=== PATIENT | male | born 1950 | race Caucasian/White ===

== ENCOUNTER 2018-01-15 16:16 | Observation (INO) | payer BC ==
[2018-01-15] MEDS: ENOXAPARIN 100 MG/ML SYR SQ SCH ×2 (06:00→18:00)
--- OUTSIDE RECORDS SUMMARY | 2018-01-15 16:18 | XMS REPORT | Clinical Summary ---
:1950 Author Organization [facility] Address [address] [place] [address] Care Team Providers Name Role Phone Asked, No Pcp Primary Care Provider Unavailable Allergies No Known Allergies Current Medications Prescription Sig. Disp. Refills Start Date End Date Status diclofenac 10/18/2017 Active (VOLTAREN) 75 MG EC tablet Ca/D3/mag Take by mouth. Active ox/zinc/copy director/bang/francia r (CALCIUM 600-D3 PLUS ORAL) ondansetron Take 1 tablet 20 tablet 2 12/11/2017 Active (ZOFRAN) 4 MG (4 mg total) tablet by mouth every 8 (eight) hours as needed for nausea or vomiting. acetaminophen Take 650 mg by 11/30/2017 Discontinued (TYLENOL) 325 MG mouth every 4 tablet (four) hours as needed for mild pain. HYDROcodone-acetami Take 1 tablet 11/30/2017 12/14/2017 nophen (NORCO) by mouth every 10-325 mg per 6 (six) hours tablet as needed for moderate pain for up to 60 doses. Max Daily Amount: 4 tablets aspirin (ECOTRIN) Take 1 tablet 60 tablet 0 11/30/2017 12/30/2017 81 MG enteric (81 mg total) coated tablet by mouth 2 (two) times a day for 30 days. sulfamethoxazole-tr Take 1 tablet 20 tablet 0 12/01/2017 12/11/2017 imethoprim (BACTRIM by mouth 2 DS) 800-160 mg per (two) times a tablet day for 10 days. promethazine Take 1 tablet 30 tablet 1 12/11/2017 01/10/2018 (PHENERGAN) 25 MG (25 mg total) tablet by mouth every 6 (six) hours as needed for nausea or vomiting for up to 30 days. Active Problems Problem Noted Date Status post total knee replacement using cement, right 12/11/2017 Primary osteoarthritis of right knee 11/01/2017 Overview: Added automatically from request for surgery [id number] Right knee pain 10/31/2017 Pain of right hip joint 10/31/2017 Primary localized osteoarthritis of right knee 10/31/2017 Primary localized osteoarthritis of right hip 10/31/2017 Encounters Date Type Specialty Care Team Description 01/11/2018 Office Visit Orthopedic Surgery Anne, Status post total knee Maximilian Jaime, replacement using MD moses, right (Primary Dx) 01/10/2018 Orders Only Orthopedic Surgery Pope, Right knee pain, [place], [place] unspecified chronicity (Primary Dx) 12/11/2017 Office Visit Orthopedic Surgery Kendy Whittington Status post total knee ASCENCION Rodriguez replacement using cement, right (Primary Dx) 12/11/2017 Orders Only Orthopedic Surgery Pope, Right knee pain, [place], [place] unspecified chronicity (Primary Dx) 12/01/2017 Orders Only Orthopedic Surgery Kendy Whittington PA 11/30/2017 Patient Outreach Quality Peggy Jules RN 11/29/2017 - Hospital Encounter Orthopedic Surgery Anne, Status post total knee replacement not using cement, right (Primary Dx); 11/30/2017 Maximilian Jaime Primary osteoarthritis of right knee 11/29/2017 Procedure Pass Orthopedic Surgery 11/29/2017 Surgery Orthopedic Surgery Anne, ARTHROPLASTY, KNEE, Maximilian Jaime, TOTAL 11/01/2017 Orders Only Orthopedic Surgery Niko, Primary osteoarthritis [place], [place] of right knee (Primary Dx) 10/31/2017 Hospital Encounter Radiology Anne, Primary osteoarthritis Maximilian Jaime of right knee 10/31/2017 Pre-Admit Testing Pre-Admission Anne, Primary osteoarthritis Appointment Testing Maximilian Jaime of right knee 10/31/2017 Office Visit Orthopedic Surgery Anne, Right knee pain, unspecified chronicity (Primary Dx); Maximilian Jaime, Pain of right hip joint; Primary localized osteoarthritis of right knee; Primary localized osteoarthritis of right hip 10/31/2017 Anesthesia Event Orthopedic Surgery Jeanie Gillis APRN 10/31/2017 Ancillary Orders Orthopedic Surgery Anne, Primary osteoarthritis Maximilian Addison, of right knee 10/31/2017 Orders Only Orthopedic Surgery Niko, Primary osteoarthritis MILLA Sanon of right knee (Primary Dx) after 01/14/2017 Family History Medical History Relation Name Comments Cancer Father Rafat Greene Colon Relation Name Status Comments Father Rafat Greene Social History Tobacco Use Types Packs/Day Years Used Date Current Every Day Smoker Cigarettes, Electronic Cigarettes 30 Smokeless Tobacco: Current User Tobacco Cessation: Ready to Quit: No; Counseling Given: No Alcohol Use Drinks/Week oz/Week Comments No Sex Assigned at Date Recorded Not on file Last Filed Vital Signs Vital Sign Reading Time Taken Blood Pressure 123/69 11/30/2017 8:50 AM CDT Pulse 63 11/30/2017 8:50 AM CDT Temperature 36.1 C (96.9 F) 11/30/2017 7:23 AM CDT Respiratory Rate 15 11/30/2017 7:23 AM CDT Oxygen Saturation 100% 11/30/2017 7:23 AM CDT Inhaled Oxygen Concentration - - Weight 91.6 kg (202 lb) 11/29/2017 8:15 AM CDT Height 190.5 cm (6' 3") 11/29/2017 8:15 AM CDT Body Mass Index 25.25 11/29/2017 8:15 AM CDT Plan of Treatment Health Maintenance Due Date Last Done Comments COLON CANCER SCREENING 2002 SHINGRIX VACCINE (#1) 2002 ZOSTER VACCINE 2012 PNEUMOCOCCAL POLYSACCHARIDE VACCINE AGE 65 AND OVER 2017 PNEUMOCOCCAL-13 2017 INFLUENZA VACCINE 01/03/2018 Implants Implanted Type Area Figurine Maker Device Expiration Model / Identifier Date Serial / Lot Legion Ps Oxin Fem Sz7 Rt - [id number] IMPLANT Right: [employer] 04/22/2027 [id number] / Implanted: Qty: 1 on 11/29/2017 by Maximilian Rodríguez MD DEVICES Knee ORTHOPAEDICS / [id number] Cement Bone R+G 1dose Palacos - [id number] Knee Joint Right: [employer] 06/04/2021 [id number] / Implanted: Qty: 1 on 11/29/2017 by Maximilian Rodríguez MD Implants Knee / [id number] Cement Bone R+G 1dose Palacos - [id number] Knee Joint Right: [employer] 06/04/2021 [id number] / Implanted: Qty: 1 on 11/29/2017 by Maximilian Rodríguez MD Implants Knee / [id number] Implant Tib Christiana Ii N-Por Rt Ti Sz 7 - [id number] Knee Joint Right: [employer] AND 09/16/2027 [id number] / Implanted: Qty: 1 on 11/29/2017 by Maximilian Rodríguez MD Implants Knee NEPHEW / ORTHOPEDICS [id number] Implant Ptlr Christiana Ii Rsrfcng Uhmwpe 9x35mm - [id number] Knee Joint Right: [employer] AND 05/13/2027 [id number] / Implanted: Qty: 1 on 11/29/2017 by Maximilian Rodríguez MD Implants Knee NEPHEW / ORTHOPEDICS [id number] Insert Artclr P-Stb Hi Flxon Lnr Xlpe Sz 7-8 9mm Legion - [id number] Knee Joint Right: [employer] AND 02/25/2027 [id number] / Implanted: Qty: 1 on 11/29/2017 by Maximilian Rodríguez MD Implants Knee NEPHEW / ORTHOPEDICS [id number] Procedures Procedure Name Priority Date/Time Associated Diagnosis Comments XR KNEE 3 VW RIGHT Routine 01/11/2018 2:17 Right knee pain, Results for this PM CDT unspecified chronicity procedure are in the results section. XR KNEE 3 VW RIGHT Routine 12/11/2017 1:54 Right knee pain, Results for this PM CDT unspecified chronicity procedure are in the results section. PROTHROMBIN TIME Routine 11/30/2017 4:10 Results for this WITH INR AM CDT procedure are in the results section. HC COMPLETE BLD Routine 11/30/2017 4:10 Results for this COUNT W/AUTO DIFF AM CDT procedure are in the results section. XR KNEE 1 OR 2 VW Routine 11/29/2017 2:24 Results for this RIGHT PM CDT procedure are in the results section. POC GLUCOSE Routine 11/29/2017 1:33 Results for this PM CDT procedure are in the results section. SURGICAL PATHOLOGY Routine 11/29/2017 12:05 Results for this REQUEST PM CDT procedure are in the results section. ARTHROPLASTY, KNEE, 11/29/2017 11:00 Primary osteoarthritis TOTAL AM CDT of right knee Special Needs 1 hour; Davis [employer] Nephew; Jaguar Ozyp rep; Supine position with arms extended less than 90 degrees; Tommy Footholder; pink foam under Non-operative leg; Venaflow on Non-Operative legsmith and nephewa.Arrival 0730b.2 g ancef, 1.5 g vancc.Please g dane vanc at 0800 DE AN ELECTIVE SUPRAGLOTTIC AIRWAY Routine 11/29/2017 10:50 AM CDT Procedure Note - Loulou Kent Jr., INSTRUMENT TECHNICIAN HELPER - 11/29/2017 10:50 AM CDT Airway Date/Time: 11/29/2017 10:44 AM Performed by: LOULOU KENT JR Authorized by: ROBIN JAVIER Location: OR Urgency: Elective Difficult Airway: No Anesthesiologist: ROBIN JAVIER Resident/INSTRUMENT TECHNICIAN HELPER/AA: LOULOU KENT JR Performed by: resident/INSTRUMENT TECHNICIAN HELPER/AA Preoxygenated with 100% O2: Yes C-spine Precautions Maintained Throughout: Yes Mask Ventilation: Easy mask Final Airway Type: Supraglottic airway Final LMA: I-Gel LMA Size: 5 Number of Attempts at Approach: 1 POC GLUCOSE Routine 11/29/2017 8:35 Results for this AM CDT procedure are in the results section. TYPE AND SCREEN Routine 11/29/2017 8:26 Results for this AM CDT procedure are in the results section. URINE CULTURE Routine 10/31/2017 6:05 Results for this PM CDT procedure are in the results section. XR CHEST 2 VW Routine 10/31/2017 5:38 Primary Results for this PM CDT osteoarthritis of procedure are in right knee the results section. ECG 12-LEAD Routine 10/31/2017 5:10 Primary Results for this PM CDT osteoarthritis of procedure are in right knee the results section. ESTIMATED GFR Routine 10/31/2017 4:49 Results for this PM CDT procedure are in the results section. URINALYSIS SCREEN AND Routine 10/31/2017 4:49 Primary Results for this MICROSCOPY, WITH PM CDT osteoarthritis of procedure are in REFLEX TO CULTURE right knee the results section. PROTHROMBIN TIME WITH Routine 10/31/2017 4:49 Primary Results for this INR PM CDT osteoarthritis of procedure are in right knee the results section. PARTIAL THROMBOPLASTIN Routine 10/31/2017 4:49 Primary Results for this TIME (PTT) PM CDT osteoarthritis of procedure are in right knee the results section. HEPATITIS C ANTIBODY Routine 10/31/2017 4:49 Primary Results for this PM CDT osteoarthritis of procedure are in right knee the results section. HEPATITIS B SURFACE Routine 10/31/2017 4:49 Primary Results for this ANTIBODY PM CDT osteoarthritis of procedure are in right knee the results section. HEMOGLOBIN A1C Routine 10/31/2017 4:49 Primary Results for this PM CDT osteoarthritis of procedure are in right knee the results section. COMPREHENSIVE Routine 10/31/2017 4:49 Primary Results for this METABOLIC PANEL PM CDT osteoarthritis of procedure are in right knee the results section. HC COMPLETE BLD COUNT Routine 10/31/2017 4:49 Primary Results for this W/AUTO DIFF PM CDT osteoarthritis of procedure are in right knee the results section. XR LEG LENGTH Routine 10/31/2017 3:16 Right knee pain, Results for this EVALUATION PM CDT unspecified procedure are in chronicity the results section. XR KNEE 3 VW RIGHT Routine 10/31/2017 3:16 Right knee pain, Results for this PM CDT unspecified procedure are in chronicity the results section. XR HIP 2-3 VIEWS RIGHT Routine 10/31/2017 3:16 Pain of right hip Results for this PM CDT joint procedure are in the results section. after 01/14/2017 Results XR Knee 3 Vw Right (01/11/2018 2:17 PM)Only the most recent of3 resultswithin the time period is included. Narrative Performed At Right knee 3 view demonstrates well aligned total knee prosthesis. No HM [facility] implant or osseus complications Performing Organization Address City/[facility] [place] [facility] [address] [place] [address] Prothrombin time with INR (11/30/2017 4:10 AM)Only the most recent of2 resultswithin the time period is included. Prothrombin time 13.9 12.0 - 15.[address] [facility] DEPARTMENT OF PATHOLOGY AND GENOMIC MEDICINE INR 1.[address] [facility] DEPARTMENT OF Comment: PATHOLOGY AND GENOMIC The International Normalized Ratio (INR) is a therapeutic MEDICINE monitoring tool for patients who are stable on oral anticoagulant therapy. An INR of 2.0-3.0 is suggested for deep vein thrombosis/pulmonary embolism. Specimen Blood Performing Organization Address City/[facility]/Zipcode Phone Number [facility] DEPARTMENT PATHOLOGY AND [address] [place] [address] GENOMIC MEDICINE CBC with platelet and differential (11/30/2017 4:10 AM)Only the most recent of2 resultswithin the time period is included. WBC 10.83 4.50 - 11.00 k/uL [facility] DEPARTMENT OF PATHOLOGY AND GENOMIC MEDICINE RBC 3.71 (L) 4.40 - 6.00 m/uL [facility] DEPARTMENT OF PATHOLOGY AND GENOMIC MEDICINE HGB 12.4 (L) 14.0 - 18.0 g/dL [facility] DEPARTMENT OF PATHOLOGY AND GENOMIC MEDICINE HCT 37.4 (L) 41.0 - 51.0 % [facility] DEPARTMENT OF PATHOLOGY AND GENOMIC MEDICINE MCV 100.8 (H) 82.0 - 100.[address] [facility] DEPARTMENT OF PATHOLOGY AND GENOMIC MEDICINE MCH 33.4 27.0 - 34.[address] [facility] DEPARTMENT OF PATHOLOGY AND GENOMIC MEDICINE MCHC 33.2 31.0 - 37.0 g/dL [facility] DEPARTMENT OF PATHOLOGY AND GENOMIC MEDICINE RDW - SD 46.5 37.0 - 55.[address] [facility] DEPARTMENT OF PATHOLOGY AND GENOMIC MEDICINE MPV 10.2 8.8 - 13.[address] [facility] DEPARTMENT OF PATHOLOGY AND GENOMIC MEDICINE Platelet count 169 150 - 400 k/uL [facility] DEPARTMENT OF PATHOLOGY AND GENOMIC MEDICINE Nucleated RBC 0.00 /[address] [facility] DEPARTMENT OF PATHOLOGY AND GENOMIC MEDICINE Neutrophils 82.8 (H) 39.0 - 69.0 % [facility] DEPARTMENT OF PATHOLOGY AND GENOMIC MEDICINE Lymphocytes 9.5 (L) 25.0 - 45.0 % [facility] DEPARTMENT OF PATHOLOGY AND GENOMIC MEDICINE Monocytes 7.0 0.0 - 10.0 % [facility] DEPARTMENT OF PATHOLOGY AND GENOMIC MEDICINE Eosinophils 0.0 0.0 - 5.0 % [facility] DEPARTMENT OF PATHOLOGY AND GENOMIC MEDICINE Basophils 0.2 0.0 - 1.0 % [facility] DEPARTMENT OF PATHOLOGY AND GENOMIC MEDICINE Immature granulocytes 0.5Comment: 0.0 - 1.0 % [facility] DEPARTMENT OF "Immature PATHOLOGY AND GENOMIC granulocytes" MEDICINE (promyelocytes, myelocytes, metamyelocytes) Specimen Blood Performing Organization Address City/[facility]/Zipcode Phone Number [facility] DEPARTMENT OF PATHOLOGY AND [address] [place] [address] GENOMIC MEDICINE XR Knee 1 Or 2 Vw Right (11/29/2017 2:24 PM) Narrative Performed At EXAMINATION:XR KNEE 1 OR 2 VW RIGHT [facility] CLINICAL HISTORY:total knee arthoplasty COMPARISON:10/31/2017 TECHNIQUE: 2views of the right knee obtained. IMPRESSION: Interval right knee arthroplasty. Satisfactory immediate postoperative appearance. [facility]-[id number] Procedure Note Interface, Radiology Results Incoming - 11/29/2017 3:49 PM CDT EXAMINATION: XR KNEE 1 OR 2 VW RIGHT CLINICAL HISTORY: total knee arthoplasty COMPARISON: 10/31/2017 TECHNIQUE: 2 views of the right knee obtained. IMPRESSION: Interval right knee arthroplasty. Satisfactory immediate postoperative appearance. [facility]-[id number] Performing Organization Address City/[facility] Phone Number [facility] [address] [place] [phone] POC glucose (11/29/2017 1:33 PM)Only the most recent of2 resultswithin the time period is included. POC glucose 87 65 - 99 mg/dL [facility] DEPARTMENT OF PATHOLOGY AND Comment: GENOMIC MEDICINE No Action Needed [facility] Notified RN Meter ID: [id number] Head Bander And Liner Operator: Miriam Tang Performing Organization Address City/[facility]/Zipcode Phone Number [facility] DEPARTMENT OF PATHOLOGY AND [address] [place] [phone] GENOMIC MEDICINE Surgical pathology request (11/29/2017 12:05 PM) [facility] DEPARTMENT OF PATHOLOGY AND GENOMIC MEDICINE Surgical pathology report See link below for PDF [facility] DEPARTMENT OF Lab Report PATHOLOGY AND GENOMIC MEDICINE Result status This is Final Report to [facility] DEPARTMENT OF [id number] PATHOLOGY AND GENOMIC MEDICINE Performing Organization Address [facility] Cent[facility]ode Phone Number [facility] DEPARTMENT OF PATHOLOGY AND [address] [place], [place] [phone] GENOMIC MEDICINE Type and screen (11/29/2017 8:26 AM) ABO grouping B [facility] DEPARTMENT OF PATHOLOGY AND GENOMIC MEDICINE Rh type POS [facility] DEPARTMENT OF PATHOLOGY AND GENOMIC MEDICINE Antibody screen (gel) NEG [facility] DEPARTMENT OF PATHOLOGY AND GENOMIC MEDICINE Specimen Blood Performing Organization Address City/[facility]ode Phone Number [facility] DEPARTMENT OF PATHOLOGY AND [address] [place] [phone] GENOMIC MEDICINE Urine culture (10/31/2017 6:05 PM) Urine culture SEE COMMENTComment: Bacteriuria [facility] DEPARTMENT OF PATHOLOGY screen negative. AND GENOMIC MEDICINE Performing Organization Address [facility]ode Phone Number [facility] DEPARTMENT OF PATHOLOGY AND [address] [place] [address] GENOMIC MEDICINE XR Chest 2 Vw (10/31/2017 5:38 PM) Narrative Performed At EXAMINATION:XR CHEST 2 VW [facility] CLINICAL HISTORY:M17.11 Unilateral primary osteoarthritisright knee, pre op exam COMPARISON:None. IMPRESSION: 1.The cardiomediastinal silhouette is normal. 2.Mild emphysematous changes are present. There is no evidence of pulmonary edema. There are no focal consolidations or effusions. 3.Marginal osteophytes are present in the midthoracic spine. There are no suspicious bony abnormalities. Procedure Note Interface, Radiology Results Incoming - 10/31/2017 5:46 PM CDT EXAMINATION: XR CHEST 2 VW CLINICAL HISTORY: M17.11 Unilateral primary osteoarthritis right knee, pre op exam COMPARISON: None. IMPRESSION: 1. The cardiomediastinal silhouette is normal. 2. Mild emphysematous changes are present. There is no evidence of pulmonary edema. There are no focal consolidations or effusions. 3. Marginal osteophytes are present in the midthoracic spine. There are no suspicious bony abnormalities. Performing Organization Address [facility] Cent[facility]ode Phone Number [facility] [address] [place] [address] ECG 12 lead (10/31/2017 5:10 PM) Ventricular rate 53 [facility] Atrial rate 53 [facility] DE interval 174 [facility] QRSD interval 98 [facility] QT interval 432 [facility] QTC interval 405 [facility] P axis 1 62 [facility] QRS axis 1 11 [facility] T wave axis 6 [facility] EKG impression Sinus bradycardia-Minimal voltage criteria [facility] MUSE for LVH, may be normal variant-Borderline ECG-No previous ECGs available- Performing Organization Address City/[facility]/Zipcode Phone Number [facility] MUSE [address] [place] [address] Urinalysis screen and microscopy, with reflex to culture (10/31/2017 4:49 PM) Specimen site Clean catch [facility] DEPARTMENT OF PATHOLOGY AND GENOMIC MEDICINE Color, UA Yellow [facility] DEPARTMENT OF PATHOLOGY AND GENOMIC MEDICINE Appearance, UA Clear [facility] DEPARTMENT OF PATHOLOGY AND GENOMIC MEDICINE Specific gravity, UA 1.020 1.001 - 1.[address] [facility] DEPARTMENT OF PATHOLOGY AND GENOMIC MEDICINE pH, UA 5.0 5.0 - 8.[address] [facility] DEPARTMENT OF PATHOLOGY AND GENOMIC MEDICINE Protein, UA Negative Negative [facility] DEPARTMENT OF PATHOLOGY AND GENOMIC MEDICINE Glucose, UA Negative Negative [facility] DEPARTMENT OF PATHOLOGY AND GENOMIC MEDICINE Ketones, UA Negative Negative [facility] DEPARTMENT OF PATHOLOGY AND GENOMIC MEDICINE Bilirubin, UA Negative Negative [facility] DEPARTMENT OF PATHOLOGY AND GENOMIC MEDICINE Blood, UA Negative Negative [facility] DEPARTMENT OF PATHOLOGY AND GENOMIC MEDICINE Nitrite, UA Negative Negative [facility] DEPARTMENT OF PATHOLOGY AND GENOMIC MEDICINE Urobilinogen, UA <2.0 <2.[address] [facility] DEPARTMENT OF PATHOLOGY AND GENOMIC MEDICINE Leukocyte esterase, UA Negative Negative [facility] DEPARTMENT OF PATHOLOGY AND GENOMIC MEDICINE Epithelial cells, UA <1 /HPF [facility] DEPARTMENT OF PATHOLOGY AND GENOMIC MEDICINE WBC, UA 1 0 - 1 /HPF [facility] DEPARTMENT OF PATHOLOGY AND GENOMIC MEDICINE RBC, UA 1 0 - 5 /HPF [facility] DEPARTMENT OF PATHOLOGY AND GENOMIC MEDICINE Bacteria, UA None seen None seen [facility] DEPARTMENT OF PATHOLOGY AND GENOMIC MEDICINE Yeast, UA None seen [facility] DEPARTMENT OF PATHOLOGY AND GENOMIC MEDICINE Yeast with pseudohyphae, UA None seen [facility] DEPARTMENT OF PATHOLOGY AND GENOMIC MEDICINE Specimen Urine Performing Organization Address City/State/[facility]ercode Phone Number [facility] DEPARTMENT OF PATHOLOGY AND [address] [place] [address] [facility] Estimated GFR (10/31/2017 4:49 PM) GFR Non Af Amer >90 mL/min/1.[address] [facility] DEPARTMENT OF PATHOLOGY AND GENOMIC MEDICINE GFR Af Amer >90 mL/min/1.[address] [facility] DEPARTMENT OF Comment: PATHOLOGY AND GENOMIC Chronic kidney disease: <60 mL/min/1.73m2 MEDICINE Kidney failure: <15 mL/min/1.73m2 The estimated GFR is calculated from the IDMS-traceable Modification of Diet in Renal Disease Equation. The accuracy of the calculation is poor when the creatinine is normal. Calculated values >90 mL/min/1.73m2 are not reported. This equation has not been validated in children (<18 years), women, the elderly (>70 years), or ethnic groups other than Caucasians and Americans. Specimen Plasma specimen Performing Organization Address City/State/Zipcode Phone Number [facility] DEPARTMENT OF PATHOLOGY AND [address] [place], [place] [phone] [place] [address] Hepatitis C antibody (10/31/2017 4:49 PM) Hepatitis C Ab Non-reactive Non-reactive [facility] DEPARTMENT OF PATHOLOGY AND [facility] Specimen Urine Performing Organization Address [facility] [place] Phone [place] [facility] DEPARTMENT OF PATHOLOGY AND [address] [place] [address] Hepatitis B surface antibody (10/31/2017 4:49 PM) Hepatitis B surface Ab Non-reactive Non-reactive [facility] DEPARTMENT OF PATHOLOGY AND [facility] Specimen Urine Performing Organization Address [facility] [place] Phone Number [facility] DEPARTMENT OF PATHOLOGY AND [address] [place] [address] Partial thromboplastin time, activated (10/31/2017 4:49 PM) PTT 28.1 23.0 - 36.[address] [facility] DEPARTMENT OF PATHOLOGY Comment: AND [facility] PTT therapeutic range for unfractionated heparin is 61.0-112.0 seconds which corresponds to Anti-Xa 0.3-0.7 U/ml. Specimen Blood Performing Organization Address [facility] [place] [facility] DEPARTMENT OF PATHOLOGY AND [address] [place] [address] Hemoglobin A1c (10/31/2017 4:49 PM) Hemoglobin A1C 5.6 4.0 - 5.6 % [facility] DEPARTMENT OF PATHOLOGY Comment: AND [facility] HbA1c cutoffs for diagnosing diabetes: 4.0% - 5.6%=normal 5.7% - 6.4%=increased risk for diabetes (prediabetes) >=6.5%=diabetes Goals for glycemic control (ADA 2016) < 7.0%Target for non adults with diabetes. More or less stringent targets may be appropriate for individual patients. <7.5% Target for Children and adolescents with type 1 diabetes. Specimen Urine Performing Organization Address [facility] Phone Number [facility] DEPARTMENT OF PATHOLOGY AND [address] [place] [address] Comprehensive metabolic panel (10/31/2017 4:49 PM) Sodium 143 135 - 148 mEq/L [facility] DEPARTMENT OF PATHOLOGY AND GENOMIC MEDICINE Potassium 4.3 3.5 - 5.0 mEq/L [facility] DEPARTMENT OF PATHOLOGY AND GENOMIC MEDICINE Chloride 103 98 - 112 mEq/L [facility] DEPARTMENT OF PATHOLOGY AND GENOMIC MEDICINE CO2 26 24 - 31 mEq/L [facility] DEPARTMENT OF PATHOLOGY AND GENOMIC MEDICINE Anion gap 14@ANIO 7 - 15 mEq/L [facility] DEPARTMENT OF PATHOLOGY AND GENOMIC MEDICINE BUN 23 8 - 23 mg/dL [facility] DEPARTMENT OF PATHOLOGY AND GENOMIC MEDICINE Creatinine 0.8 0.7 - 1.2 mg/dL [facility] DEPARTMENT OF PATHOLOGY AND GENOMIC MEDICINE Glucose 81 65 - 99 mg/dL [facility] DEPARTMENT OF PATHOLOGY AND GENOMIC MEDICINE Calcium 9.7 8.8 - 10.2 mg/dL [facility] DEPARTMENT OF PATHOLOGY AND GENOMIC MEDICINE Protein 7.8 6.3 - 8.3 g/dL [facility] DEPARTMENT OF Comment: PATHOLOGY AND GENOMIC Cassandra 4.6-7.0 g/dL MEDICINE 1 week 4.4-7.6 g/dL 7 months-1year5.1-7.3 g/dL 1-2 years5.6-7.5 g/dL >3 years6.0-8.0 g/dL 18-150 6.3-8.3 g/dL Albumin 4.1 3.5 - 5.0 g/dL [facility] DEPARTMENT OF PATHOLOGY AND GENOMIC MEDICINE A/G ratio 1.1 0.7 - 3.[address] [facility] DEPARTMENT OF PATHOLOGY AND GENOMIC MEDICINE Alkaline phosphatase 68 40 - 129 U/L [facility] DEPARTMENT OF PATHOLOGY AND GENOMIC MEDICINE AST 21 10 - 50 U/L [facility] DEPARTMENT OF PATHOLOGY AND GENOMIC MEDICINE ALT 26 5 - 50 U/L [facility] DEPARTMENT OF PATHOLOGY AND GENOMIC MEDICINE Total bilirubin 0.5 0.0 - 1.2 mg/dL [facility] DEPARTMENT OF PATHOLOGY AND GENOMIC MEDICINE Specimen Plasma specimen Performing Organization Address City/[facility] Phone Number [facility] DEPARTMENT OF PATHOLOGY AND [address] [place] [phone] GENOMIC MEDICINE XR Leg Length Evaluation (10/31/2017 3:16 PM) Narrative Performed At Long leg film shows neutral alignment of bilateral legs, no gross [facility] abnormalities noted. Performing Organization Address City/[facility] Phone Number [facility] [address] [place] [address] XR Hip 2-3 View Right (10/31/2017 3:16 PM) Narrative Performed At Right hip xray shows osteophytes present and joint space narrowing.Mild [facility] cam deformity Performing Organization Address City/State/Zipcode Phone Number [facility] [address] [place] [address] after 01/14/2017 Insurance Payer Benefit Plan / Group Subscriber ID Type Phone Address [facility] YANA VALENTIN xxxxxxxxxxxx PPO MEDICARE MEDICARE PART A xxxxxxxxxxx Medicare [place], [place] Home: [phone] [place], [place] [phone]
--- NOTE | 2018-01-15 17:16 | ER ---
Nurse's Notes [facility] Name: Sina Greene Age: 67 yrs Sex: Male : 1950 Arrival Date: 01/15/2018 Time: 16:19 Bed 5 Private MD: Out, [facility] Diagnosis: Acute embolism and thrombosis of deep veins of lower extremity-right Presentation: 01/15 16:39 Presenting complaint: Patient states: Had a right total knee replacement November 29, jl7 started having right calf pain on Monday and imaging done today and confirmed a clot to the right leg. Transition of care: patient was not received from another setting of care. Onset of symptoms was January 15, 2018. Risk Assessment: Do you want to hurt yourself or someone else? Patient reports no desire to harm self or others. Initial Sepsis Screen: Does the patient meet any 2 criteria? No. Patient's initial sepsis screen is negative. Does the patient have a suspected source of infection? No. Patient's initial sepsis screen is negative. Care prior to arrival: None. 16:39 Method Of Arrival: Wheelchair [facility] 16:39 Acuity: MONA 3 jl7 Historical: - Allergies: 16:42 No Known Allergies; jl7 - Home Meds: 16:42 None [Active]; jl7 - PMHx: 16:42 None; jl7 - PSHx: 16:42 Right knee; back; jl7 - Immunization history:: Adult Immunizations up to date. - Social history:: Smoking status: Patient uses tobacco products, smokes one-half pack cigarettes per day. - Ebola Screening: : No symptoms or risks identified at this time. - Family history:: not pertinent. Screenin:00 Abuse screen: Denies threats or abuse. Nutritional screening: No deficits noted. jb4 Tuberculosis screening: No symptoms or risk factors identified. Fall Risk IV access (20 points). Total Owens Fall Scale indicates No Risk (0-24 pts). Assessment: 17:00 General: Appears in no apparent distress. comfortable, Behavior is calm, cooperative, jb4 appropriate for age. Pain: Complains of pain in right calf Pain does not radiate. Pain currently is 0 out of 10 on a pain scale. at worst was 5 out of 10 on a pain scale. Quality of pain is described as aching, Pain began 2-3 days ago. Is intermittent. Neuro: Level of Consciousness is awake, alert, obeys commands, Oriented to person, place, time, situation. Cardiovascular: Denies chest pain, shortness of breath, Heart tones S1 S2 present Patient's skin is warm and dry. Respiratory: Airway is patent Respiratory effort is even, unlabored, Respiratory pattern is regular, symmetrical, Breath sounds are clear bilaterally. GI: Abdomen is flat, Bowel sounds present X 4 quads. Abd is soft and non tender X 4 quads. : No signs and/or symptoms were reported regarding the genitourinary system. EENT: No signs and/or symptoms were reported regarding the EENT system. Derm: Skin is intact, Skin is pink, warm \T\ dry. Musculoskeletal: Circulation, motion, and sensation intact. Capillary refill < 3 seconds, in right toes. Swelling present in right leg Reports pain in right calf since Monday.. 18:00 Reassessment: Patient appears in no apparent distress at this time. No changes from 4 previously documented assessment. Patient and/or family updated on plan of care and expected duration. Pain level reassessed. Patient is alert, oriented x 3, equal unlabored respirations, skin warm/dry/pink. 18:20 Reassessment: Pt wheeled to CT. jb4 18:40 Reassessment: Back from CT. jb4 18:51 Reassessment: Patient appears in no apparent distress at this time. Patient and/or jb4 family updated on plan of care and expected duration. Pain level reassessed. Patient is alert, oriented x 3, equal unlabored respirations, skin warm/dry/pink. Echo is at the bedside. Patient denies pain at this time. 19:00 Reassessment: RECD REPORT FROM VAMSI RODRIGUEZ. 67YO WM P/W R CALF TENDERNESS NOTED AT bp OUTPATIENT PHYSICAL THERAPY. ECHO AT B/S. ADMIT IN PROCESS. 19:11 Reassessment: ECHO COMPLETED. bp 19:56 Reassessment: Report given to Miguelina on second floor. Vital Signs: 16:42 BP 128 / 82; Pulse 69; Resp 16 S; Temp 98.2(O); Pulse Ox 99% on R/A; Weight 94.35 kg jl7 (R); Height 6 ft. 3 in. (190.50 cm) (R); Pain 1/10; 17:30 BP 140 / 87; Pulse 69; Resp 16; Pulse Ox 97% on R/A; Pain 0/10; jb4 18:00 BP 132 / 86; Pulse 66; Resp 16; Pulse Ox 94% on R/A; Pain 0/10; jb4 19:00 BP 126 / 72; Pulse 66; Resp 16; Pulse Ox 97% on R/A; Pain 0/10; jb4 16:42 Body Mass Index 26.00 (94.35 kg, 190.50 cm) jl7 ED Course: 16:19 Patient arrived in ED. sb2 16:21 Out, [facility] is Private Physician. sb2 16:41 Triage completed. jl7 16:42 Arm band placed on right wrist. jl7 16:44 Juan Landrum MD is Attending Physician. madonna 17:05 Initial lab(s) drawn, by de, sent to lab. Inserted saline lock: 22 gauge in right jp3 forearm, using aseptic technique. Blood collected. 17:13 Tommy Shepard, RN is Primary Nurse. jb4 17:14 Bed in low position. Call light in reach. Side rails up X 1. Pulse ox on. NIBP on. jp3 17:15 Carlo Wallace DO is Hospitalizing Provider. madonna 17:15 technology administrator on. jb4 17:17 XRAY Chest (1 view) In Process Unspecified. EDMS 17:38 EKG done, by master technician. reviewed by Juan Landrum MD. dt2 17:43 Radiology exam delayed due to lab results not completed at this time. (BUN/Creatinine). nj 18:[address] via stretcher. vm2 18:30 CT completed. Patient tolerated procedure well. Patient moved back from CT. vm2 18:35 CT Chest For PE Angio In Process Unspecified. EDMS 18:50 Pillow given. jp3 19:09 Primary Nurse role handed off by Tommy Shepard, JENNIFER bp 19:09 Gerardo Barahona, JENNIFER is Primary Nurse. bp 19:15 2D Echocardiogram with Doppler done by tech. dt2 20:00 No provider procedures requiring assistance completed. Patient admitted, IV remains in bp place. Administered Medications: 17:28 Drug: Lovenox 1 mg/kg Route: Sub-Q; Site: right lower abdomen; jb4 17:56 Follow up: Response: No adverse reaction jb4 17:30 Drug: NS 0.9% 1000 ml Route: IV; Rate: 125 ml/hr; Site: right forearm; jb4 19:45 Follow up: IV Status: Infusion continued upon admission bp Outcome: 17:16 Decision to Hospitalize by Provider. madonna 19:56 Admitted to Med/surg accompanied by nurse, room 209, with chart, Report called to Miguelina moreira RN 19:56 Condition: stable bp 20:28 Patient left the ED. bp Signatures: Dispatcher [employer] EDUT Juan Landrum MD MD cha Bryson, James, RN RN jb4 Varun Love Jahala, RN RN jl7 [place] Patel2 Richelle Ware RN Gerardo Bo ea RN RN Renay Snell2 Otilia Mercer dt2 Ortega Obando jp3
--- NOTE | 2018-01-15 17:16 | EDPHYS ---
Physician Documentation [facility] Name: Sina Greene Age: 67 yrs Sex: Male : 1950 Arrival Date: 01/15/2018 Time: 16:19 Bed 5 Private MD: Out, [facility] ED Physician Juan Landrum HPI: 01/15 17:08 This 67 yrs old Male presents to ER via Wheelchair with complaints of BLOOD madonna CLOT RT LEG. 17:08 The patient presents with decreased range of motion, pain, swelling, tenderness. The madonna complaints affect the lateral aspect of right calf, right calf, medial aspect of right calf and right james. Context: The problem was sustained at an unknown site. Onset: The symptoms/episode began/occurred 1 week(s) ago. Modifying factors: The symptoms are alleviated by nothing. elevating leg, the symptoms are aggravated by movement, weight bearing. Associated signs and symptoms: The patient has no apparent associated signs or symptoms. Severity of symptoms: At their worst the symptoms were mild, in the emergency department the symptoms are unchanged. The patient has not experienced similar symptoms in the past. Historical: - Allergies: 16:42 No Known Allergies; jl7 - Home Meds: 16:42 None [Active]; jl7 - PMHx: 16:42 None; jl7 - PSHx: 16:42 Right knee; back; jl7 - Immunization history:: Adult Immunizations up to date. - Social history:: Smoking status: Patient uses tobacco products, smokes one-half pack cigarettes per day. - Ebola Screening: : No symptoms or risks identified at this time. - Family history:: not pertinent. ROS: 17:08 Constitutional: Negative for fever, chills, and weight loss, Eyes: Negative for injury, madonna pain, redness, and discharge, ENT: Negative for injury, pain, and discharge, Neck: Negative for injury, pain, and swelling, Cardiovascular: Negative for chest pain, palpitations, and edema, Respiratory: Negative for shortness of breath, cough, wheezing, and pleuritic chest pain, Abdomen/GI: Negative for abdominal pain, nausea, vomiting, diarrhea, and constipation, Back: Negative for injury and pain, : Negative for injury, bleeding, discharge, and swelling, Skin: Negative for injury, rash, and discoloration, Neuro: Negative for headache, weakness, numbness, tingling, and seizure, Psych: Negative for depression, anxiety, suicide ideation, homicidal ideation, and hallucinations, Allergy/Immunology: Negative for hives, rash, and allergies, Endocrine: Negative for neck swelling, polydipsia, polyuria, polyphagia, and marked weight changes, Hematologic/Lymphatic: Negative for swollen nodes, abnormal bleeding, and unusual bruising. 17:08 MS/extremity: Positive for decreased range of motion, pain, swelling, tenderness, of the lateral aspect of right calf, right calf and medial aspect of right calf. Exam: 17:08 Constitutional: This is a well developed, well nourished patient who is awake, alert, madonna and in no acute distress. Head/Face: Normocephalic, atraumatic. Eyes: Pupils equal round and reactive to light, extra-ocular motions intact. Lids and lashes normal. Conjunctiva and sclera are non-icteric and not injected. Cornea within normal limits. Periorbital areas with no swelling, redness, or edema. ENT: Nares patent. No nasal discharge, no septal abnormalities noted. Tympanic membranes are normal and external auditory canals are clear. Oropharynx with no redness, swelling, or masses, exudates, or evidence of obstruction, uvula midline. Mucous membranes moist. Neck: Trachea midline, no thyromegaly or masses palpated, and no cervical lymphadenopathy. Supple, full range of motion without nuchal rigidity, or vertebral point tenderness. No Meningismus. Chest/axilla: Normal chest wall appearance and motion. Nontender with no deformity. No lesions are appreciated. Cardiovascular: Regular rate and rhythm with a normal S1 and S2. No gallops, murmurs, or rubs. Normal PMI, no JVD. No pulse deficits. Respiratory: Lungs have equal breath sounds bilaterally, clear to auscultation and percussion. No rales, rhonchi or wheezes noted. No increased work of breathing, no retractions or nasal flaring. Abdomen/GI: Soft, non-tender, with normal bowel sounds. No distension or tympany. No guarding or rebound. No evidence of tenderness throughout. Back: No spinal tenderness. No costovertebral tenderness. Full range of motion. Skin: Warm, dry with normal turgor. Normal color with no rashes, no lesions, and no evidence of cellulitis. Neuro: Awake and alert, GCS 15, oriented to person, place, time, and situation. Cranial nerves II-XII grossly intact. Motor strength 5/5 in all extremities. Sensory grossly intact. Cerebellar exam normal. Normal gait. Psych: Awake, alert, with orientation to person, place and time. Behavior, mood, and affect are within normal limits. 17:08 Musculoskeletal/extremity: ROM: no acute changes, intact in all extremities, full active range of motion, full passive range of motion, Circulation is intact in all extremities. Sensation intact. Compartment Syndrome exam of affected extremity: is normal. DVT Exam: pain, swelling, tenderness, of the right leg. Vital Signs: 16:42 BP 128 / 82; Pulse 69; Resp 16 S; Temp 98.2(O); Pulse Ox 99% on R/A; Weight 94.35 kg jl7 (R); Height 6 ft. 3 in. (190.50 cm) (R); Pain 1/10; 17:30 BP 140 / 87; Pulse 69; Resp 16; Pulse Ox 97% on R/A; Pain 0/10; jb4 18:00 BP 132 / 86; Pulse 66; Resp 16; Pulse Ox 94% on R/A; Pain 0/10; jb4 19:00 BP 126 / 72; Pulse 66; Resp 16; Pulse Ox 97% on R/A; Pain 0/10; jb4 16:42 Body Mass Index 26.00 (94.35 kg, 190.50 cm) jl7 MDM: 16:44 Patient medically screened. [facility] 17:08 Data reviewed: vital signs, nurses notes, lab test result(s), EKG, radiologic studies, [facility] plain films, ultrasound. 01/15 16:48 Order name: Basic Metabolic Panel; Complete Time: 18:50 [facility] 01/15 16:48 Order name: CBC with Diff; Complete Time: 18:50 [facility] 01/15 16:48 Order name: Ckmb; Complete Time: 18:50 [facility] 01/15 16:48 Order name: CPK; Complete Time: 18:50 [facility] 01/15 16:48 Order name: LFT's; Complete Time: 18:50 [facility] 01/15 16:48 Order name: Magnesium; Complete Time: 18:50 [facility] 01/15 16:48 Order name: NT PRO-BNP; Complete Time: 18:50 [facility] 01/15 16:48 Order name: PT-INR; Complete Time: 18:50 [facility] 01/15 16:48 Order name: Ptt, Activated; Complete Time: 18:50 [facility] 01/15 16:48 Order name: Troponin (emerg Dept Use Only); Complete Time: 18:50 [facility] 01/15 16:48 Order name: XRAY Chest (1 view); Complete Time: 17:41 [facility] 01/15 17:41 Order name: Echo w/ Doppler [facility] 01/15 17:41 Order name: CT Chest For PE Angio [facility] 01/15 18:15 Order name: Urine Dipstick--Ancillary (enter results); Complete Time: 18:50 01/15 16:48 Order name: EKG; Complete Time: 16:48 [facility] 01/15 16:48 Order name: Cardiac monitoring; Complete Time: 17:33 [facility] 01/15 16:48 Order name: EKG - Nurse/Tech; Complete Time: 17:33 [facility] 01/15 16:48 Order name: IV Saline Lock; Complete Time: 17:23 [facility] 01/15 16:48 Order name: Labs collected and sent; Complete Time: 17:23 [facility] 01/15 16:48 Order name: O2 Per Protocol; Complete Time: 17:23 [facility] 01/15 16:48 Order name: O2 Sat Monitoring; Complete Time: 17:24 [facility] 01/15 16:48 Order name: Urine Dipstick-Ancillary (obtain specimen); Complete Time: 17:35 [facility] 01/15 17:50 Order name: Physical Therapy Consult [facility] 01/15 17:50 Order name: Heart Healthy [facility] 01/15 18:01 Order name: Social Service Consult [facility] Administered Medications: 17:28 Drug: Lovenox 1 mg/kg Route: Sub-Q; Site: right lower abdomen; jb4 17:56 Follow up: Response: No adverse reaction jb4 17:30 Drug: NS 0.9% 1000 ml Route: IV; Rate: 125 ml/hr; Site: right forearm; jb4 19:45 Follow up: IV Status: Infusion continued upon admission bp Disposition: 01/15/18 17:16 Hospitalization ordered by Carlo Wallace for Observation. Preliminary diagnosis is Acute embolism and thrombosis of deep veins of lower extremity - right. - Bed requested for Telemetry/MedSurg (observation). - Status is Observation. bp - Condition is Stable. - Problem is new. - Symptoms have improved. UTI on Admission? No Signatures: Dispatcher [employer] EDNM [place] Juan Landrum MD MD cha Bryson, James, RN RN jb4 Solo Raygoza, RN RN jl7 Gerardo Barahona, RN RN bp Corrections: (The following items were deleted from the chart) 17:44 17:21 CONS Physician Consult ordered. EDNM EDNM 18:24 17:16 Hospitalization Ordered by Carlo Wallace DO for Observation. Preliminary bd diagnosis is Acute embolism and thrombosis of deep veins of lower extremity - right. Bed requested for Telemetry/MedSurg (observation). Status is Observation. Condition is Stable. Problem is new. Symptoms have improved. UTI on Admission? No. madonna 20:28 18:24 01/15/2018 17:16 Hospitalization Ordered by Carlo Wallace DO for Observation. bp Preliminary diagnosis is Acute embolism and thrombosis of deep veins of lower extremity - right. Bed requested for Telemetry/MedSurg (observation). Status is Observation. Condition is Stable. Problem is new. Symptoms have improved. UTI on Admission? No. bd
--- NOTE | 2018-01-15 17:24 | RAD REPORT ---
EXAM DESCRIPTION: Ankit Single View01/15/2018 5:18 pm CLINICAL HISTORY: Cough COMPARISON: 2009 FINDINGS: The lungs appear clear of acute infiltrate. The heart is normal size IMPRESSION: No acute abnormalities displayed
[2018-01-15] MEDS ORDERED: ENOXAPARIN 100 MG/ML SYR SQ ONE (17:25)
[2018-01-15] MEDS ORDERED: NA CHLORIDE 0.9% 1,000 ML ONE (17:25)
[2018-01-15 17:43] LABS: Absolute Monocytes 0.8 K/uL (0.1-1.3); Absolute Neutrophil 4.9 K/uL (1.8-8.0); Basophils % 1.2 % (0-1.3); Eosinophils % 3.4 % (0-4.4); Hematocrit 41.3 % (39.6-49.0); Lymphocytes % 25.1 % (15.3-44.8); MCH 32.6 pg (27.0-35.0); MCV 98.2 fL (80-100); Monocytes % 9.8 % (3.3-12.3); RBC Red Blood Cell Count 4.21 M/uL (4.33-5.43)
[2018-01-15] MEDS ORDERED: ONDANSETRON 4 MG/2 ML VIAL IV PRN (17:44)
[2018-01-15] MEDS ORDERED: ACETAMINOPHEN 500 MG TAB PO PRN (17:44)
[2018-01-15] MEDS ORDERED: TRAMADOL HCL 50 MG TAB PO PRN (17:44)
[2018-01-15] MEDS ORDERED: HYDROCODONE/APAP 7.5/325 MG TAB PO PRN (17:44)
--- NOTE | 2018-01-15 17:55 | P.HP ---
Certification for Inpatient Patient admitted to: Observation With expected LOS: <2 Midnights Patient will require the following post-hospital care: Other Practitioner: I am a practitioner with admitting privileges, knowledge of patient current condition, hospital course, and medical plan of care. Services: Services provided to patient in accordance with Admission requirements found in Title 42 Section 412.3 of the Code of Federal Regulations Patient History Date of Service: 01/15/18 Primary Care Provider: Marsha Pa NP(Dr. Galindo) Reason for admission: Right calf pain History of Present Illness: 67 yo CM presented to the ER after he was seen by his Physical therapist who was concerned about a DVT to the right LLE. Over the last 3 days he has noted some increased swelling to the right knee and calf. He noted some warmth as well. Patient had recent right knee replacement on November 29 in [place]. He was apparently sent home after outpatient surgery. The patient recalls taking aspirin 81 mg 2 pills daily. The physical therapist then sent the patient to a local physician in [facility]. The patient was evaluated by a nurse practitioner. There was some concern for DVT. Patient had evaluation. Patient found to have right lower extremity DVT. The patient was sent to the ER for further evaluation. Patient denies any chest pain, shortness of breath, nausea or vomiting. Patient reported some mild chest pain often on over the past several weeks. He has not had any chest pain recently. In the ER patient was evaluated. Patient found to have right lower extremity DVT. Lab pending at this time. Echo and CT chest are pending. Patient was admitted for observation. When I saw the patient ER, patient remained stable. He does not appear in any respiratory distress. Patient with history of tobacco abuse. Otherwise he does not take any medication. Home medications list reviewed: Yes - Past Medical/Surgical History Diabetic: No -: Tobacco abuse -: Right knee replacement -: Back surgery Psychosocial/ Personal History: Patient is . He has 2 children. He is a spot welder body assembly. - Family History Brother -: Heart disease - Social History Smoking Status: Light Tobacco smoker (1-9 cigarettes/day) Counseled patient to stop smoking for: less than 10 minutes Smoking therapy provided: Yes Patient receptive to therapy: Yes Alcohol use: No CD- Drugs: No Caffeine use: Yes Place of Residence: Home Review of Systems General: As per HPI Eyes: Unremarkable ENT: Unremarkable Respiratory: Unremarkable Cardiovascular: Unremarkable Gastrointestinal: Unremarkable Genitourinary: Unremarkable Musculoskeletal: Leg Pain, Pedal edema, As per HPI Integumentary: As per HPI Neurological: Unremarkable Lymphatics: Unremarkable Physical Examination - Physical Exam General: Alert, In no apparent distress, Oriented x3, Cooperative HEENT: Atraumatic, Normocephalic, PERRLA, Mucous membr. moist/pink Neck: Supple, No Thyromegaly Respiratory: Clear to auscultation bilaterally, Normal air movement Cardiovascular: Normal pulses, Regular rate/rhythm Gastrointestinal: Normal bowel sounds, Soft and benign, Non-distended, No tenderness, No masses, No rebound, No guarding Musculoskeletal: No erythema, No tenderness, No warmth Integumentary: No erythema, No warmth, Tenderness/swelling (Swelling to the right lower extremity noted.), Warmth (Warmth noted to the right calf region. With palpation noted.) Neurological: Normal speech, Normal strength at 5/5 x4 extr, Normal tone, Normal affect - Studies Laboratory Data (last 24 hrs) 01/15/18 17:05: WBC 8.1, Hgb 13.7, Hct 41.3, Plt Count 306 Assessment and Plan - Problems (Diagnosis) (1) DVT (deep venous thrombosis) Current Visit: Yes Status: Acute Plan: Patient found to have acute right lower extremity DVT. Patient had right knee replacement on 11/30/2007 in [place]. Patient not previously on anti coagulation therapy except aspirin. Will start Lovenox at 1 milligram/kilogram subcu twice daily. Will check echocardiogram and CT chest to evaluate for pulmonary embolism. Patient will require chronic anti coagulation therapy. Will have social media project manager help in this process tomorrow. Anticipate discharge as early as tomorrow if stable. Will obtain records from [facility] for venous Doppler. I will turn the service over to Dr. Juan tomorrow. I will go over the plan of care. Qualifiers: DVT location: lower extremity Chronicity: acute Laterality: right (2) History of right knee surgery Current Visit: Yes Status: Chronic Plan: Patient had right knee replacement on 11/29/2017. (3) Tobacco abuse Current Visit: Yes Status: Chronic Plan: Tobacco cessation addressed in detail. Patient does not desire to quit. Discharge Plan: Home Plan to discharge in: 24 Hours - Advance Directives Does patient have a Living Will: No Does patient have a Durable POA for Healthcare: No - Code Status/Comfort Care Code Status Assessed: Yes Time Spent Managing Pts Care (In Minutes): 55
[2018-01-15 18:08] LABS: ALT/SGPT 22 U/L (12-78); AST/SGOT 13 U/L (15-37); Albumin 3.7 g/dL (3.4-5.0); Alkaline Phosphatase 60 U/L (45-117); BUN Blood Urea Nitrogen 16 mg/dL (7-18); Bicarbonate 31 mmol/L (21-32); Bilirubin Direct < 0.1 mg/dL (0-0.2); Bilirubin Total 0.2 mg/dL (0.2-1.0); CKMB Creatine Kinase MB < 1.0 ng/mL (0.3-3.6); Creatine Phosphokinase 37 U/L (39-308); Glucose Level 89 mg/dL (74-106); Magnesium 2.4 mg/dL (1.8-2.4); NT PRO-BNP 35 pg/mL (<125); Potassium 3.8 mmol/L (3.5-5.1); Protein, Total 7.5 g/dL (6.4-8.2); Sodium Level 140 mmol/L (136-145)
[2018-01-15 18:27] LABS: Protime INR 0.91
[2018-01-15 18:38] LABS: Urine Blood NEGATIVE (NEG); Urine Glucose NEGATIVE (NEG); Urine Protein NEGATIVE (NEG); Urine Specific Gravity >1.030 (1.005-1.030); Urine pH 5.5 (5.0-7.0)
--- NOTE | 2018-01-15 19:05 | RAD REPORT ---
EXAM DESCRIPTION: CT - Chest For Pe Angio - 01/15/2018 6:35 pm CLINICAL HISTORY: Recent knee replacement, left leg pain and swelling, positive DVT COMPARISON: Chest films same date TECHNIQUE: Dynamically enhanced 3 mm thick images of the chest were obtained during administration o f approximately 150mL Isovue 370 IV contrast. Coronal and oblique reconstruction images were generate d and reviewed. Exam utilizes a protocol to evaluate the pulmonary arterial tree. All CT scans are performed using dose optimization technique as appropriate and may include automated exposure control or mA/KV adjustment according to patient size. FINDINGS: No central pulmonary emboli are present. Peripheral branch assessment is limited by motion . There does appear to be pulmonary emboli in segmental and subsegmental branches of the medial right lung base and probably in the medial left lung base. Mid and upper lung field pulmonary emboli not s een. The aorta as imaged shows no acute or suspicious finding. No pericardial thickening or effusion. No infiltrate or mass in the lung parenchyma. No pleural effusion or pleural thickening. No mediastinal or hilar suspicious masses. No chest wall masses or abnormal axillary lymphadenopathy. IMPRESSION: Bilateral medial lung base segmental and subsegmental pulmonary emboli. No pulmonary hemorrhage, mass, infiltrate or other acute finding.
[2018-01-16] MEDS: ENOXAPARIN 100 MG/ML SYR SQ SCH (05:48)
[2018-01-16 05:58] LABS: Absolute Lymphocytes (CBC) 1.5 K/uL (0.7-4.9); Absolute Monocytes 0.7 K/uL (0.1-1.3); Absolute Neutrophil 4.1 K/uL (1.8-8.0); Basophils % 1.2 % (0-1.3); Hematocrit 38.2 % (39.6-49.0); Lymphocytes % 21.9 % (15.3-44.8); MCH 33.1 pg (27.0-35.0); MCV 97.9 fL (80-100); MPV 7.7 fL (7.6-11.3); RBC Red Blood Cell Count 3.91 M/uL (4.33-5.43)
[2018-01-16 06:04] LABS: BUN Blood Urea Nitrogen 13 mg/dL (7-18); Bicarbonate 32 mmol/L (21-32); Glucose Level 102 mg/dL (74-106); HDL Cholesterol 40 mg/dL (40-60); LDL Cholesterol, Calculated 80 (<130); Magnesium 2.2 mg/dL (1.8-2.4); Potassium 4.6 mmol/L (3.5-5.1); Sodium Level 142 mmol/L (136-145)
[2018-01-16] MEDS ORDERED: PANTOPRAZOLE 40MG TABLET PO SCH (06:30)
--- NOTE | 2018-01-16 07:29 | ECHO ---
HEIGHT: 6 ft 3 in WEIGHT: 200 lb 4.8 oz DATE OF STUDY: 01/15/[address]: Juan Landrum MD 2-DIMENSIONAL: YES M.MODE: YES DOPPLER: YES COLOR FLOW: YES TDS: PORTABLE: DEFINITY: BUBBLE STUDY: DIAGNOSIS: CHEST PAIN CARDIAC HISTORY: CATHERIZATION: NO SURGERY: NO PROSTHETIC VALVE: NO PACEMAKER: NO MEASUREMENTS (cm) DIASTOLIC (NORMALS) SYSTOLIC (NORMALS) IVSd 1.0 (0.6-1.2) LA Diam 3.1 (1.9-4.0) LVEF 70% LVIDd 4.7 (3.5-5.7) LVIDs 2.8 (2.0-3.5) %FS 40% LVPWd 1.0 (0.6-1.2) Ao Diam 3.3 (2.0-3.7) 2 DIMENSIONAL ASSESSMENT: RIGHT ATRIUM: NORMAL LEFT ATRIUM: NORMAL RIGHT VENTRICLE: NORMAL LEFT VENTRICLE: NORMAL TRICUSPID VALVE: NORMAL MITRAL VALVE: NORMAL PULMONIC VALVE: NORMAL AORTIC VALVE: NORMAL PERICARDIAL EFFUSION: NONE AORTIC ROOT: NORMAL LEFT VENTRICULAR WALL MOTION: NORMAL DOPPLER/COLOR FLOW: TRACE TRICUSPID REGURGITATION COMMENTS: NORMAL 2-DIMENSIONAL ECHOCARDIOGRAM. TRACE TRICUSPID REGURGITATION. TECHNOLOGIST: LUIS GRANT
--- NOTE | 2018-01-16 07:50 | EKG ---
Test Date: 2018-01-15 Test Time: 17:30:22 General Laborer: JUAN PABLO MEASUREMENT RESULTS: Intervals: Rate: 71 ID: [id number] QRSD: 92 QT: 400 QTc: 434 [place]: P: 52 ID: [id number] QRS: -11 T: 22 INTERPRETIVE STATEMENTS: Normal sinus rhythm Minimal voltage criteria for LVH, may be normal variant Borderline ECG Compared to ECG 05/24/2010 07:24:23 Left ventricular hypertrophy now present Electronically Signed On 01-16-18 07:49:47 CDT by Johnathon Horton
[2018-01-16] MEDS ORDERED: PNEUMOCOCCAL VACCINE 0.5 ML IMVAC ONE (08:00)
--- NOTE | 2018-01-16 17:31 | P.SSS ---
Patient History Date of Service: 01/16/18 Primary Care Provider: Marsha Pa NP(Dr. Galindo) Reason for admission: Right calf pain History of Present Illness: See HPI Allergies No Known Allergies Allergy (Verified 01/15/18 22:40) Home Medications: Rivaroxaban [Xarelto] 10 mg PO DAILY #60 tablet 01/16/18 - Past Medical/Surgical History Has patient received pneumonia vaccine in the past: Yes Diabetic: No -: Tobacco abuse -: Right knee replacement -: Back surgery Psychosocial/ Personal History: Patient is . He has 2 children. He is a plastic welder. - Family History Brother -: Heart disease - Social History Smoking Status: Light Tobacco smoker (1-9 cigarettes/day) Alcohol use: No CD- Drugs: No Caffeine use: Yes Place of Residence: Home Review of Systems General: As per HPI Physical Examination - Vital Signs Temperature: 97.2 F Blood Pressure: 119/67 Pulse: 73 Respirations: 17 Pulse Ox (%): 96 - Physical Exam General: Alert, In no apparent distress HEENT: Atraumatic, PERRLA, Mucous membr. moist/pink, EOMI, Sclerae nonicteric Neck: Supple, 2+ carotid pulse no bruit, No LAD, Without JVD or thyroid abnormality Respiratory: Clear to auscultation bilaterally, Normal air movement Cardiovascular: Regular rate/rhythm, Normal S1 S2 Gastrointestinal: Normal bowel sounds, No tenderness Musculoskeletal: No tenderness Integumentary: No rashes Neurological: Normal gait, Normal speech, Normal strength at 5/5 x4 extr, Normal tone, Normal affect Lymphatics: No axilla or inguinal lymphadenopathy - Studies Laboratory Data (last 24 hrs) 01/15/18 17:05: PT 10.7, INR 0.91, APTT 29.5 01/15/18 17:05: WBC 8.1, Hgb 13.7, Hct 41.3, Plt Count 306 01/15/18 17:05: Sodium 140, Potassium 3.8, BUN 16, Creatinine 0.70, Glucose 89, Magnesium 2.4, Total Bilirubin 0.2, AST 13 L, ALT 22, Alkaline Phosphatase 60 - Diagnosis (Problem(s)) (1) DVT (deep venous thrombosis) Onset Date: 01/16/18 Status: Acute Qualifiers: DVT location: lower extremity Chronicity: acute Laterality: right (2) History of right knee surgery Status: Chronic (3) Tobacco abuse Onset Date: 01/16/18 Status: Chronic Treatment Summary: Overall during the hospital stay patient remained stable The patient was initially admitted to the hospital for a right lower extremity DVT. Patient is status post knee surgery 2 weeks ago after which she started developing swelling and redness to his right lower extremity and was found to have DVT in his right lower extremity. Patient was initially started on weight based Lovenox and then was switched over to assure also 50 mg b.i.d. for 21 days and then to have 20 mg daily after that. Patient was asked to follow up with primary care provider for further workup. Patient had a CTA done here in the hospital which was Positive for Subsegmental PE. No complications were noted during this hospital visit and patient was thus discharged under stable condition on improvement of his swelling and redness on the right lower extremity. - Disposition Disposition: ROUTINE DISCHARGE
== END 2018-01-16 15:27 | disposition home or self-care (01) ==
LOC: ER 16:16 → ERHOLD 17:18 → 2ND 19:38
PROVIDERS: ADMIT Family Medicine; ATTEND Family Medicine
DX: I82.401 Acute embolism and thrombosis of unspecified deep veins of right lower extremity (principal); I26.99 Other pulmonary embolism without acute cor pulmonale; Z96.651 Presence of right artificial knee joint; F17.210 Nicotine dependence, cigarettes, uncomplicated; Z79.82 Long term (current) use of aspirin
CPT/HCPCS: 36415; 71045; 71275; 80048; 80061; 80076; 81003; 82550; 82553; 83735; 83880; 84484; 85025; 85610; 85730; 93005; 93306; 93971; 96360; 96361; 96372; 97163; 99285; G0378; J1650; J7030; Q9967

== ENCOUNTER 2018-01-20 05:00 | Observation (INO) | payer BC ==
--- OUTSIDE RECORDS SUMMARY | 2018-01-20 05:03 | XMS REPORT | Clinical Summary ---
:1950 Author Organization [facility] Address [address] [place] [address] Care Team Providers Name Role Phone Asked, No Pcp Primary Care Provider Unavailable Allergies No Known Allergies Current Medications Prescription Sig. Disp. Refills Start Date End Date Status diclofenac 10/18/2017 Active (VOLTAREN) 75 MG EC tablet Ca/D3/mag Take by mouth. Active ox/zinc/copier technician/bang/francia r (CALCIUM 600-D3 PLUS ORAL) ondansetron Take [...] Overview: Added automatically from request for surgery [id number] Right knee pain 10/31/2017 Pain of right [...] [place]on of right knee (Primary Dx) after 01/19/2017 Family History Medical History Relation Name Comments [...] INFLUENZA VACCINE 01/03/2018 Implants Implanted Type Area Warehouse Shipping Associate Device Expiration Model / Identifier Date Serial / Lot Legion Ps Oxin Fem Sz7 Rt - [id number] IPM IMPLANT Right: [employer] 04/22/2027 [id number] / Implanted: Qty: 1 on 11/29/2017 by Maximilian Rodríguez MD DEVICES Knee ORTHOPAEDICS / [id number] Cement Bone R+G 1dose Palacos - [id number] Knee Joint Right: [employer] 06/04/2021 [id number] / Implanted: Qty: 1 on 11/29/2017 by Maximilian Rodríguez MD Implants Knee / [id number] Cement Bone R+G 1dose Palacos - [id number] Knee Joint Right: [employer] 06/04/2021 [id number] / Implanted: Qty: 1 on 11/29/2017 by Maximilian Rodríguez MD Implants Knee / [id number] Implant Tib Christiana Ii N-Por Rt Ti Sz 7 - [id number] Knee Joint Right: [employer] AND 09/16/2027 [id number] / Implanted: Qty: 1 on 11/29/2017 by Maximilian Rodríguez MD Implants Knee NEPHEW / ORTHOPEDICS [id number] Implant Ptlr Christiana Ii Rsrfcng Uhmwpe 9x35mm - [id number] Knee Joint Right: [employer] AND 05/13/2027 [id number] / Implanted: Qty: 1 on 11/29/2017 by Maximilian Rodríguez MD Implants Knee NEPHEW / ORTHOPEDICS [id number] Insert Artclr P-Stb Hi Flxon Lnr Xlpe Sz 7-8 9mm Legion - [id number] Knee Joint Right: [employer] AND 02/25/2027 [id number] / Implanted: Qty: 1 on 11/29/2017 by Maximilian Rodríguez MD Implants Knee NEPHEW / ORTHOPEDICS [id number] Procedures Procedure Name Priority Date/Time Associated Diagnosis [...] g vancc.Please g dane vanc at 0800 MO AN ELECTIVE SUPRAGLOTTIC AIRWAY Routine 11/29/2017 10:50 AM CDT Procedure Note - Loulou Kent Jr., PRECONSTRUCTION MANAGER - 11/29/2017 10:50 AM CDT Airway Date/Time: 11/29/2017 10:44 AM Performed by: LOULOU KENT JR Authorized by: ROBIN JAVIER Location: [place] Urgency: Elective Difficult Airway: No Anesthesiologist: ROBIN JAVIER Resident/PRECONSTRUCTION MANAGER/AA: LOULOU KENT JR Performed by: resident/PRECONSTRUCTION MANAGER/AA Preoxygenated with 100% O2: Yes C-spine Precautions [...] procedure are in the results section. after 01/19/2017 Results XR Knee 3 Vw Right (01/11/2018 2:17 PM)Only the most recent of3 resultswithin the time period is included. Narrative Performed At Right knee 3 view demonstrates well aligned total knee prosthesis. No [facility] implant or osseus complications Performing Organization Address City/[facility] Phone Number [facility] [address] [place] [address] Prothrombin time with INR (11/30/2017 4:10 AM)Only the most recent of2 resultswithin the time period is included. Prothrombin time 13.9 12.0 - 15.0 sec [facility] DEPARTMENT OF PATHOLOGY AND GENOMIC MEDICINE INR 1.1 [facility] DEPARTMENT OF Comment: PATHOLOGY AND GENOMIC The International Normalized Ratio (INR) is a therapeutic MEDICINE monitoring tool for patients who are stable on oral anticoagulant therapy. An INR of 2.0-3.0 is suggested for deep vein thrombosis/pulmonary embolism. Specimen Blood Performing Organization Address City/[facility]/Zipcode Phone Number [facility] DEPARTMENT PATHOLOGY AND [address] [place] [address] GENOMIC MEDICINE CBC with platelet and differential (11/30/2017 4:10 AM)Only the most recent of2 resultswithin the time period is included. WBC 10.83 4.50 - 11.00 k/uL [facility] DEPARTMENT OF PATHOLOGY AND GENOMIC MEDICINE RBC 3.71 (L) 4.40 - 6.00 m/uL [facility] DEPARTMENT OF PATHOLOGY AND GENOMIC MEDICINE HGB 12.4 (L) 14.0 - 18.0 g/dL [facility] DEPARTMENT OF PATHOLOGY AND GENOMIC MEDICINE HCT 37.4 (L) 41.0 - 51.0 % [facility] DEPARTMENT OF PATHOLOGY AND GENOMIC MEDICINE MCV 100.8 (H) 82.0 - 100.0 fL [facility] DEPARTMENT OF PATHOLOGY AND GENOMIC MEDICINE MCH 33.4 27.0 - 34.0 pg [facility] DEPARTMENT OF PATHOLOGY AND GENOMIC MEDICINE MCHC 33.2 31.0 - 37.0 g/dL [facility] DEPARTMENT OF PATHOLOGY AND GENOMIC MEDICINE RDW - SD 46.5 37.0 - 55.0 fL [facility] DEPARTMENT OF PATHOLOGY AND GENOMIC MEDICINE MPV 10.2 8.8 - 13.2 fL [facility] DEPARTMENT OF PATHOLOGY AND GENOMIC MEDICINE Platelet count 169 150 - 400 k/uL [facility] DEPARTMENT OF PATHOLOGY AND GENOMIC MEDICINE Nucleated RBC 0.00 /100 WBC [facility] DEPARTMENT OF PATHOLOGY AND GENOMIC MEDICINE Neutrophils 82.8 (H) 39.0 - 69.0 % [facility] DEPARTMENT OF PATHOLOGY AND GENOMIC MEDICINE Lymphocytes 9.5 (L) 25.0 - 45.0 % [facility] DEPARTMENT OF PATHOLOGY AND GENOMIC MEDICINE Monocytes 7.0 0.0 - 10.0 % [facility] DEPARTMENT OF PATHOLOGY AND GENOMIC MEDICINE Eosinophils 0.0 0.0 - 5.0 % [facility] DEPARTMENT OF PATHOLOGY AND GENOMIC MEDICINE Basophils 0.2 0.0 - 1.0 % [facility] DEPARTMENT OF PATHOLOGY AND GENOMIC MEDICINE Immature granulocytes 0.5Comment: 0.0 - 1.0 % [facility] DEPARTMENT OF "Immature PATHOLOGY AND GENOMIC granulocytes" MEDICINE (promyelocytes, myelocytes, metamyelocytes) Specimen Blood Performing Organization Address City/[facility]/Zipcode Phone Number [facility] DEPARTMENT OF PATHOLOGY AND [address] [place] [address] GENOMIC MEDICINE XR Knee 1 Or 2 Vw Right (11/29/2017 2:24 PM) Narrative Performed At EXAMINATION:XR KNEE 1 OR 2 VW RIGHT [facility] CLINICAL HISTORY:total knee arthoplasty COMPARISON:10/31/2017 TECHNIQUE: 2views of the right knee obtained. IMPRESSION: Interval right knee arthroplasty. Satisfactory immediate postoperative appearance. [facility]-[id number] Procedure Note Interface, Radiology Results Incoming - 11/29/2017 3:49 PM CDT EXAMINATION: XR KNEE 1 OR 2 VW RIGHT CLINICAL HISTORY: total knee arthoplasty COMPARISON: 10/31/2017 TECHNIQUE: 2 views of the right knee obtained. IMPRESSION: Interval right knee arthroplasty. Satisfactory immediate postoperative appearance. [facility]-[id number] Performing Organization Address City/[facility] Phone Number [facility] [address] [place] [phone] POC glucose (11/29/2017 1:33 PM)Only the most recent of2 resultswithin the time period is included. POC glucose 87 65 - 99 mg/dL [facility] DEPARTMENT OF PATHOLOGY AND Comment: GENOMIC MEDICINE No Action Needed [facility] Notified RN Meter ID: [id number] Carpenter Apprentice: Miriam Tang Performing Organization Address City/[facility]/Zipcode Phone Number [facility] DEPARTMENT OF PATHOLOGY AND [address] [place] [phone] GENOMIC MEDICINE Surgical pathology request (11/29/2017 12:05 PM) [facility] DEPARTMENT OF PATHOLOGY AND GENOMIC MEDICINE Surgical pathology report See link below for PDF [facility] DEPARTMENT OF Lab Report PATHOLOGY AND GENOMIC MEDICINE Result status This is Final Report to [facility] DEPARTMENT OF [id number] PATHOLOGY AND GENOMIC MEDICINE Performing Organization Address [facility]ode Phone Number [facility] DEPARTMENT OF PATHOLOGY AND [address] [place], [place] [phone] GENOMIC MEDICINE Type and screen (11/29/2017 8:26 AM) ABO grouping B [facility] DEPARTMENT OF PATHOLOGY AND GENOMIC MEDICINE Rh type POS [facility] DEPARTMENT OF PATHOLOGY AND GENOMIC MEDICINE Antibody screen (gel) NEG [facility] DEPARTMENT OF PATHOLOGY AND GENOMIC MEDICINE Specimen Blood Performing Organization Address City/[facility] Phone Number [facility] DEPARTMENT OF PATHOLOGY AND [address] [place] [phone] GENOMIC MEDICINE Urine culture (10/31/2017 6:05 PM) Urine culture SEE COMMENTComment: Bacteriuria [facility] DEPARTMENT OF PATHOLOGY screen negative. AND GENOMIC MEDICINE Performing Organization Address [facility] Centercode Phone Number [facility] DEPARTMENT OF PATHOLOGY AND [address] [place] [address] GENOMIC MEDICINE XR Chest 2 Vw (10/31/2017 [...] no suspicious bony abnormalities. Performing Organization Address [facility] Cent[facility]ode Phone Number [facility] [address] [place] [address] ECG 12 lead (10/31/2017 5:10 PM) Ventricular rate 53 [facility] Atrial rate 53 [facility] MO interval 174 [facility] QRSD interval 98 [facility] QT interval 432 [facility] QTC interval 405 [facility] P axis 1 62 [facility] QRS axis 1 11 [facility] T wave axis 6 [facility] EKG impression Sinus bradycardia-Minimal voltage criteria [facility] MUSE for LVH, may be normal variant-Borderline ECG-No previous ECGs available- Performing Organization Address City/[facility]/Zipcode Phone Number [facility] MUSE [address] [place] [address] Urinalysis screen and microscopy, with reflex to culture (10/31/2017 4:49 PM) Specimen site Clean catch [facility] DEPARTMENT OF PATHOLOGY AND GENOMIC MEDICINE Color, UA Yellow [facility] DEPARTMENT OF PATHOLOGY AND GENOMIC MEDICINE Appearance, UA Clear [facility] DEPARTMENT OF PATHOLOGY AND GENOMIC MEDICINE Specific gravity, UA 1.020 1.001 - 1.035 [facility] DEPARTMENT OF PATHOLOGY AND GENOMIC MEDICINE pH, UA 5.0 5.0 - 8.5 [facility] DEPARTMENT OF PATHOLOGY AND GENOMIC MEDICINE Protein, UA Negative Negative [facility] DEPARTMENT OF PATHOLOGY AND GENOMIC MEDICINE Glucose, UA Negative Negative [facility] DEPARTMENT OF PATHOLOGY AND GENOMIC MEDICINE Ketones, UA Negative Negative [facility] DEPARTMENT OF PATHOLOGY AND GENOMIC MEDICINE Bilirubin, UA Negative Negative [facility] DEPARTMENT OF PATHOLOGY AND GENOMIC MEDICINE Blood, UA Negative Negative [facility] DEPARTMENT OF PATHOLOGY AND GENOMIC MEDICINE Nitrite, UA Negative Negative [facility] DEPARTMENT OF PATHOLOGY AND GENOMIC MEDICINE Urobilinogen, UA <2.0 <2.0 [facility] DEPARTMENT OF PATHOLOGY AND GENOMIC MEDICINE Leukocyte esterase, UA Negative Negative [facility] DEPARTMENT OF PATHOLOGY AND GENOMIC MEDICINE Epithelial cells, UA <1 /HPF [facility] DEPARTMENT OF PATHOLOGY AND GENOMIC MEDICINE WBC, UA 1 0 - 1 /HPF [facility] DEPARTMENT OF PATHOLOGY AND GENOMIC MEDICINE RBC, UA 1 0 - 5 /HPF [facility] DEPARTMENT OF PATHOLOGY AND GENOMIC MEDICINE Bacteria, UA None seen None seen [facility] DEPARTMENT OF PATHOLOGY AND GENOMIC MEDICINE Yeast, UA None seen [facility] DEPARTMENT OF PATHOLOGY AND GENOMIC MEDICINE Yeast with pseudohyphae, UA None seen [facility] DEPARTMENT OF PATHOLOGY AND GENOMIC MEDICINE Specimen Urine Performing Organization Address City/State/[facility]ercode Phone Number [facility] DEPARTMENT OF PATHOLOGY AND [address] [place] [address] [facility] Estimated GFR (10/31/2017 4:49 PM) GFR Non Af Amer >90 mL/min/1.73 m2 [facility] DEPARTMENT OF PATHOLOGY AND GENOMIC MEDICINE GFR Af Amer >90 mL/min/1.73 m2 [facility] DEPARTMENT OF Comment: PATHOLOGY AND GENOMIC [...] specimen Performing Organization Address City/State/Zipcode Phone Number [facility] DEPARTMENT OF PATHOLOGY AND [address] [place], [place] [phone] [place] [address] Hepatitis C antibody (10/31/2017 4:49 PM) Hepatitis C Ab Non-reactive Non-reactive [facility] DEPARTMENT OF PATHOLOGY AND [facility] Specimen Urine Performing Organization Address [facility] Phone Number [facility] DEPARTMENT OF PATHOLOGY AND [address] [place] [address] Hepatitis B surface antibody (10/31/2017 4:49 PM) Hepatitis B surface Ab Non-reactive Non-reactive [facility] DEPARTMENT OF PATHOLOGY AND [facility] Specimen Urine Performing Organization Address [facility] Phone Number [facility] DEPARTMENT OF PATHOLOGY AND [address] [place] [address] Partial thromboplastin time, activated (10/31/2017 4:49 PM) PTT 28.1 23.0 - 36.0 sec [facility] DEPARTMENT OF PATHOLOGY Comment: AND [facility] PTT therapeutic range for unfractionated heparin is 61.0-112.0 seconds which corresponds to Anti-Xa 0.3-0.7 U/ml. Specimen Blood Performing Organization Address [facility] Phone Number [facility] DEPARTMENT OF PATHOLOGY AND [address] [place] [address] Hemoglobin A1c (10/31/2017 4:49 PM) Hemoglobin A1C 5.6 4.0 - 5.6 % [facility] DEPARTMENT OF PATHOLOGY Comment: AND [facility] HbA1c cutoffs for diagnosing diabetes: 4.0% - 5.6%=normal 5.7% - 6.4%=increased risk for diabetes (prediabetes) >=6.5%=diabetes Goals for glycemic control (ADA 2016) < 7.0%Target for non adults with diabetes. More or less stringent targets may be appropriate for individual patients. <7.5% Target for Children and adolescents with type 1 diabetes. Specimen Urine Performing Organization Address [facility] Phone Number [facility] DEPARTMENT OF PATHOLOGY AND [address] [place] [address] Comprehensive metabolic panel (10/31/2017 4:49 PM) Sodium 143 135 - 148 mEq/L [facility] DEPARTMENT OF PATHOLOGY AND GENOMIC MEDICINE Potassium 4.3 3.5 - 5.0 mEq/L [facility] DEPARTMENT OF PATHOLOGY AND GENOMIC MEDICINE Chloride 103 98 - 112 mEq/L [facility] DEPARTMENT OF PATHOLOGY AND GENOMIC MEDICINE CO2 26 24 - 31 mEq/L [facility] DEPARTMENT OF PATHOLOGY AND GENOMIC MEDICINE Anion gap 14@ANIO 7 - 15 mEq/L [facility] DEPARTMENT OF PATHOLOGY AND GENOMIC MEDICINE BUN 23 8 - 23 mg/dL [facility] DEPARTMENT OF PATHOLOGY AND GENOMIC MEDICINE Creatinine 0.8 0.7 - 1.2 mg/dL [facility] DEPARTMENT OF PATHOLOGY AND GENOMIC MEDICINE Glucose 81 65 - 99 mg/dL [facility] DEPARTMENT OF PATHOLOGY AND GENOMIC MEDICINE Calcium 9.7 8.8 - 10.2 mg/dL [facility] DEPARTMENT OF PATHOLOGY AND GENOMIC MEDICINE Protein 7.8 6.3 - 8.3 g/dL [facility] DEPARTMENT OF Comment: PATHOLOGY AND GENOMIC [place] 4.6-7.0 g/dL MEDICINE 1 week 4.4-7.6 g/dL 7 months-1year5.1-7.3 g/dL 1-2 years5.6-7.5 g/dL >3 years6.0-8.0 g/dL 18-150 6.3-8.3 g/dL Albumin 4.1 3.5 - 5.0 g/dL [facility] DEPARTMENT OF PATHOLOGY AND GENOMIC MEDICINE A/G ratio 1.1 0.7 - 3.8 [facility] DEPARTMENT OF PATHOLOGY AND GENOMIC MEDICINE Alkaline phosphatase 68 40 - 129 U/L [facility] DEPARTMENT OF PATHOLOGY AND GENOMIC MEDICINE AST 21 10 - 50 U/L [facility] DEPARTMENT OF PATHOLOGY AND GENOMIC MEDICINE ALT 26 5 - 50 U/L [facility] DEPARTMENT OF PATHOLOGY AND GENOMIC MEDICINE Total bilirubin 0.5 0.0 - 1.2 mg/dL [facility] DEPARTMENT OF PATHOLOGY AND GENOMIC MEDICINE Specimen Plasma specimen Performing Organization Address City/[facility] Phone Number [facility] DEPARTMENT OF PATHOLOGY AND [address] [place] [address] GENOMIC MEDICINE XR Leg Length Evaluation (10/31/2017 3:16 PM) Narrative Performed At Long leg film shows neutral alignment of bilateral legs, no gross [facility] abnormalities noted. Performing Organization Address City/[facility] Phone Number [facility] [address] [place] [address] XR Hip 2-3 View Right (10/31/2017 3:16 PM) Narrative Performed At Right hip xray shows osteophytes present and joint space narrowing.Mild [facility] cam deformity Performing Organization Address City/State/Zipcode Phone Number [facility] [address] [place] [address] after 01/19/2017 Insurance Payer Benefit Plan / Group Subscriber ID Type Phone Address [facility] YANA VALENTIN xxxxxxxxxxxx PPO MEDICARE MEDICARE PART A xxxxxxxxxxx Medicare [place], [place] Home: [address] [phone] [place], [place] [address]
--- NOTE | 2018-01-20 05:42 | EDPHYS ---
Physician Documentation [facility] Name: Sian Greene Age: 67 yrs Sex: Male : 1950 Arrival Date: 01/20/2018 Time: 05:01 Bed 4 Private MD: ED Physician Juan Landrum HPI: 01/20 05:34 This 67 yrs old Male presents to ER via Ambulatory with complaints of madonna Dizziness, Chest Discomfort. 05:34 The patient presents with dizziness, feeling faint, generalized weakness, madonna lightheadedness. Onset: The symptoms/episode began/occurred this morning. 05:34 The patient or guardian reports chest pain that is located primarily in the substernal madonna area, anterior chest wall. Onset: this morning. Context: occurred while the patient was at rest. Modifying factors: The symptoms are alleviated by nothing, the symptoms are aggravated by nothing. Associated signs and symptoms: Pertinent positives:. The pain does not radiate. Severity of symptoms: At their worst the symptoms were mild moderate in the emergency department the symptoms have improved moderately. Associated signs and symptoms: Pertinent positives: dizziness, shortness of breath. Historical: - Allergies: 05:21 No Known Allergies; bb - Home Meds: 05:25 Xarelto 15 mg oral tab twice a day [Active]; bb - PMHx: 05:21 DVT; PE; bb - PSHx: 05:21 Right knee; back; bb - Immunization history:: Adult Immunizations up to date. - Social history:: Smoking status: Patient/guardian denies using tobacco, Patient/guardian denies using alcohol, street drugs. - Ebola Screening: : No symptoms or risks identified at this time. - Family history:: not pertinent. ROS: 05:34 Constitutional: Negative for fever, chills, and weight loss, Eyes: Negative for injury, madonna pain, redness, and discharge, ENT: Negative for injury, pain, and discharge, Neck: Negative for injury, pain, and swelling, Respiratory: Negative for shortness of breath, cough, wheezing, and pleuritic chest pain, Abdomen/GI: Negative for abdominal pain, nausea, vomiting, diarrhea, and constipation, Back: Negative for injury and pain, : Negative for injury, bleeding, discharge, and swelling, Skin: Negative for injury, rash, and discoloration, Psych: Negative for depression, anxiety, suicide ideation, homicidal ideation, and hallucinations, Allergy/Immunology: Negative for hives, rash, and allergies, Endocrine: Negative for neck swelling, polydipsia, polyuria, polyphagia, and marked weight changes, Hematologic/Lymphatic: Negative for swollen nodes, abnormal bleeding, and unusual bruising. 05:34 Cardiovascular: Positive for chest pain, with cough. 05:34 Respiratory: Positive for shortness of breath. 05:34 MS/extremity: Positive for pain, swelling, tenderness, of the right leg. Exam: 05:34 Constitutional: This is a well developed, well nourished patient who is awake, alert, madonna and in no acute distress. Head/Face: Normocephalic, atraumatic. Eyes: Pupils equal round and reactive to light, extra-ocular motions intact. Lids and lashes normal. Conjunctiva and sclera are non-icteric and not injected. Cornea within normal limits. Periorbital areas with no swelling, redness, or edema. ENT: Nares patent. No nasal discharge, no septal abnormalities noted. Tympanic membranes are normal and external auditory canals are clear. Oropharynx with no redness, swelling, or masses, exudates, or evidence of obstruction, uvula midline. Mucous membranes moist. Neck: Trachea midline, no thyromegaly or masses palpated, and no cervical lymphadenopathy. Supple, full range of motion without nuchal rigidity, or vertebral point tenderness. No Meningismus. Chest/axilla: Normal chest wall appearance and motion. Nontender with no deformity. No lesions are appreciated. Cardiovascular: Regular rate and rhythm with a normal S1 and S2. No gallops, murmurs, or rubs. Normal PMI, no JVD. No pulse deficits. Respiratory: Lungs have equal breath sounds bilaterally, clear to auscultation and percussion. No rales, rhonchi or wheezes noted. No increased work of breathing, no retractions or nasal flaring. Abdomen/GI: Soft, non-tender, with normal bowel sounds. No distension or tympany. No guarding or rebound. No evidence of tenderness throughout. Back: No spinal tenderness. No costovertebral tenderness. Full range of motion. Male : Normal genitalia with no discharge or lesions. Skin: Warm, dry with normal turgor. Normal color with no rashes, no lesions, and no evidence of cellulitis. Neuro: Awake and alert, GCS 15, oriented to person, place, time, and situation. Cranial nerves II-XII grossly intact. Motor strength 5/5 in all extremities. Sensory grossly intact. Cerebellar exam normal. Normal gait. Psych: Awake, alert, with orientation to person, place and time. Behavior, mood, and affect are within normal limits. 05:34 Musculoskeletal/extremity: Extremities: noted in the right leg: decreased ROM, pain, Circulation is intact in all extremities. Sensation intact. Compartment Syndrome exam of affected extremity: is normal. DVT Exam: no appreciated bluish discoloration, no erythema, no increased warmth, pain, swelling, tenderness. Vital Signs: 05:21 BP 130 / 83; Pulse 74; Resp 17 S; Pulse Ox 97% on R/A; Weight 90.72 kg (R); Height 6 bb ft. 3 in. (190.50 cm) (R); Pain 0/10; 06:49 BP 134 / 92; Pulse 72; Resp 18; Pulse Ox 95% on R/A; ao 07:05 BP 130 / 81; Pulse 68; Resp 18; Pulse Ox 96% on R/A; hj 05:21 Body Mass Index 25.00 (90.72 kg, 190.50 cm) bb MDM: 05:[address] [facility] 05:34 Data reviewed: vital signs, nurses notes, lab test result(s), EKG, radiologic studies, [facility] CT scan, plain films, ultrasound. 01/20 05:23 Order name: Basic Metabolic Panel; Complete Time: 06:16 01/20 05:23 Order name: CBC with Diff; Complete Time: 06:16 01/20 05:23 Order name: Ckmb; Complete Time: 06:16 01/20 05:23 Order name: CPK; Complete Time: 06:16 01/20 05:23 Order name: LFT's; Complete Time: 06:16 01/20 05:23 Order name: Magnesium; Complete Time: 06:16 01/20 05:23 Order name: NT PRO-BNP; Complete Time: 06:16 01/20 05:23 Order name: PT-INR; Complete Time: 06:16 01/20 05:23 Order name: Ptt, Activated; Complete Time: 06:16 01/20 05:23 Order name: Troponin (emerg Dept Use Only); Complete Time: 06:16 bb 01/20 05:58 Order name: CBC with Automated Diff EDMS 01/20 05:58 Order name: CBC with Automated Diff EDMS 01/20 05:58 Order name: Comprehensive Metabolic Panel EDMS 01/20 05:58 Order name: Comprehensive Metabolic Panel EDMS 01/20 05:23 Order name: XRAY Chest (1 view) 01/20 05:34 Order name: CT Chest For PE Angio madonna 01/20 05:34 Order name: CT Head Brain wo Cont madonna 01/20 05:39 Order name: US Extremity Venous Unilateral Ltd madonna 01/20 05:45 Order name: Echo with Doppler EDMS 01/20 05:58 Order name: Protime (+INR) EDMS 01/20 05:58 Order name: Protime (+INR) EDMS 01/20 05:58 Order name: PTT, Activated Partial Thromb EDMS 01/20 05:58 Order name: PTT, Activated Partial Thromb EDMS 01/20 05:58 Order name: Troponin I EDMS 01/20 05:58 Order name: Troponin I EDMS 01/20 05:58 Order name: Troponin I EDMS 01/20 05:58 Order name: Liver (Hepatic) Function EDMS 01/20 05:23 Order name: EKG; Complete Time: 05:24 01/20 05:23 Order name: Cardiac monitoring; Complete Time: 05:28 bb 01/20 05:23 Order name: EKG - Nurse/Tech; Complete Time: 05:27 01/20 05:23 Order name: IV Saline Lock; Complete Time: 05:27 01/20 05:23 Order name: Labs collected and sent; Complete Time: 05:44 01/20 05:23 Order name: O2 Per Protocol; Complete Time: 05:27 01/20 05:23 Order name: O2 Sat Monitoring; Complete Time: 05:27 01/20 05:45 Order name: CONS Physician Consult EDMS 01/20 05:58 Order name: CONS Pharmacy Consult EDMS 01/20 05:58 Order name: Regular EDMS 01/20 05:58 Order name: EKG Electrocardiogram EDMS 01/20 05:58 Order name: EKG Electrocardiogram EDMS Administered Medications: 06:10 Drug: NS 0.9% 500 ml Route: IV; Rate: bolus; Site: left wrist; tl2 06:25 Follow up: IV Status: Completed infusion; IV Intake: 500ml ao 06:10 Drug: NS 0.9% 1000 ml Route: IV; Rate: 125 ml/hr; Site: left wrist; tl2 06:51 Follow up: IV Status: Infusion continued upon admission ao 07:45 Not Given (pt admitted, relayed order to floor nurse pending head CT result;): Xarelto hj 15 mg PO once; if ct head neg Disposition: 01/20/18 05:41 Hospitalization ordered by Medina Rojo for Observation. Preliminary diagnosis are Pulmonary embolism, Acute embolism and thrombosis of deep veins of lower extremity, Other chest pain. - Bed requested for Telemetry/MedSurg (observation). - Status is Observation. hj - Condition is Fair. - Problem is new. - Symptoms have improved. UTI on Admission? No Signatures: Dispatcher [employer] EDMS Marika Garcia RN RN mw Anderson, Corey, MD MD cha Ballard, Brenda, RN RN bb Joaquin, Henry, RN RN hj Knox, Taylor, RN RN tl2 Venancio Portillo RN ao Corrections: (The following items were deleted from the chart) 05:25 05:21 Home Meds: Xarelto 15 mg oral tab daily; balaji carpio 05:50 05:41 Hospitalization Ordered by Medina Rojo MD for Observation. Preliminary mw diagnosis is Pulmonary embolism; Acute embolism and thrombosis of deep veins of lower extremity; Other chest pain. Bed requested for Telemetry/MedSurg (observation). Status is Observation. Condition is Fair. Problem is new. Symptoms have improved. UTI on Admission? No. madonna 08:14 05:50 01/20/2018 05:41 Hospitalization Ordered by Medina Rojo MD for Observation. Preliminary diagnosis is Pulmonary embolism; Acute embolism and thrombosis of deep veins of lower extremity; Other chest pain. Bed requested for Telemetry/MedSurg (observation). Status is Observation. Condition is Fair. Problem is new. Symptoms have improved. UTI on Admission? No. mw
--- NOTE | 2018-01-20 05:42 | ER ---
Nurse's Notes [facility] Name: Sina Greene Age: 67 yrs Sex: Male : 1950 Arrival Date: 01/20/2018 Time: 05:01 Bed 4 Private MD: Diagnosis: Pulmonary embolism;Acute embolism and thrombosis of deep veins of lower extremity;Other chest pain Presentation: 01/20 05:18 Presenting complaint: Patient states: he was here on Monday with DVT and PEs started on bb Xarelto 15 mg daily this morning he got up and is feeling light-headed, weak with his chest feeling heavy, denies pain at this time. Transition of care: patient was not received from another setting of care. Onset of symptoms was January 20, 2018. Risk Assessment: Do you want to hurt yourself or someone else? Patient reports no desire to harm self or others. Initial Sepsis Screen: Does the patient meet any 2 criteria? No. Patient's initial sepsis screen is negative. Does the patient have a suspected source of infection? No. Patient's initial sepsis screen is negative. Care prior to arrival: None. 05:18 Method Of Arrival: Ambulatory bb 05:18 Acuity: MONA 2 bb Historical: - Allergies: 05:21 No Known Allergies; bb - Home Meds: 05:25 Xarelto 15 mg oral tab twice a day [Active]; bb - PMHx: 05:21 DVT; PE; bb - PSHx: 05:21 Right knee; back; bb - Immunization history:: Adult Immunizations up to date. - Social history:: Smoking status: Patient/guardian denies using tobacco, Patient/guardian denies using alcohol, street drugs. - Ebola Screening: : No symptoms or risks identified at this time. - Family history:: not pertinent. Screenin:11 Abuse screen: Denies threats or abuse. Nutritional screening: No deficits noted. tl2 Tuberculosis screening: No symptoms or risk factors identified. Fall Risk None identified. Assessment: 06:11 General: Appears in no apparent distress. uncomfortable, Behavior is calm, cooperative, tl2 appropriate for age. Pain: Complains of pain in chest Pain does not radiate. Quality of pain is described as pressure. Neuro: Level of Consciousness is awake, alert, obeys commands, Oriented to person, place, time, situation. Cardiovascular: Chest pain is described as mild, quality is pressure, is located in anterior. Respiratory: Airway is patent Respiratory effort is even, unlabored, Respiratory pattern is regular, symmetrical. GI: No signs and/or symptoms were reported involving the gastrointestinal system. : No signs and/or symptoms were reported regarding the genitourinary system. Derm: Skin is pink, warm \T\ dry. 06:27 Reassessment: Patient is being admitted to the hospital. Waiting on CT report and ao admission orders before called primary nurse to give report. Patient and significant other agree with the POC. 06:47 Reassessment: Dr Landrum and Dr Joe at bedside assessing patient. ao 07:03 General: Appears in no apparent distress. uncomfortable, Behavior is calm, cooperative, hj appropriate for age. Pain: Complains of pain in chest Pain does not radiate. Quality of pain is described as pressure. Neuro: Level of Consciousness is awake, alert, obeys commands, Oriented to person, place, time, situation, Appropriate for age. Cardiovascular: Chest pain is described as mild, quality is pressure, is located in anterior. Respiratory: Airway is patent Respiratory effort is even, unlabored, Respiratory pattern is regular, symmetrical. GI: No signs and/or symptoms were reported involving the gastrointestinal system. : No signs and/or symptoms were reported regarding the genitourinary system. EENT: No signs and/or symptoms were reported regarding the EENT system. Derm: Skin is pink, warm \T\ dry. Musculoskeletal: No signs and/or symptoms reported regarding the musculoskeletal system. 07:40 Reassessment: reinforced complete bed rest, to hold on xarelto pending CT head result;. Vital Signs: 05:21 BP 130 / 83; Pulse 74; Resp 17 S; Pulse Ox 97% on R/A; Weight 90.72 kg (R); Height 6 bb ft. 3 in. (190.50 cm) (R); Pain 0/10; 06:49 BP 134 / 92; Pulse 72; Resp 18; Pulse Ox 95% on R/A; ao 07:05 BP 130 / 81; Pulse 68; Resp 18; Pulse Ox 96% on R/A; hj 05:21 Body Mass Index 25.00 (90.72 kg, 190.50 cm) ED Course: 05:01 Patient arrived in ED. ds1 05:20 Triage completed. bb 05:21 Arm band placed on Patient placed in an exam room, on a stretcher, on property assessment monitor, bb on pulse oximetry. EKG completed in triage. Results shown to MD. Family accompanied patient. 05:27 Juan Landrum MD is Attending Physician. madonna 05:39 Venancio Portillo RN is Primary Nurse. ao 05:39 Medina Rojo MD is Hospitalizing Provider. madonna 05:40 X-ray completed. Portable x-ray completed in exam room. Patient tolerated procedure kp1 well. 05:43 XRAY Chest (1 view) In Process Unspecified. EDMS 05:44 Inserted saline lock: 20 gauge in left wrist, using aseptic technique. Blood collected. cc 06:02 Radiology exam delayed due to lab results not completed at this time. (BUN/Creatinine). kw1 06:11 Patient has correct armband on for positive identification. Placed in gown. Bed in low tl2 position. Call light in reach. Side rails up X2. Adult w/ patient. 06:[address] via stretcher. kw1 06:19 CT Head Brain wo Cont In Process Unspecified. EDMS 06:39 CT completed. Patient tolerated procedure well. Patient moved back from CT. kw1 07:02 Report given to JENNIFER Angela. Patient is waiting on CT report to take Xarelto and go to ao his room. 07:30 Ultrasound completed. Patient tolerated well. sg3 07:39 No provider procedures requiring assistance completed. Patient admitted, IV remains in hj place. intact. 08:23 Notified IT CONSULTING DIRECTOR/PA Keshia kumar us prelim. sg3 Administered Medications: 06:10 Drug: NS 0.9% 500 ml Route: IV; Rate: bolus; Site: left wrist; tl2 06:25 Follow up: IV Status: Completed infusion; IV Intake: 500ml ao 06:10 Drug: NS 0.9% 1000 ml Route: IV; Rate: 125 ml/hr; Site: left wrist; tl2 06:51 Follow up: IV Status: Infusion continued upon admission ao 07:45 Not Given (pt admitted, relayed order to floor nurse pending head CT result;): Xarelto hj 15 mg PO once; if ct head neg Intake: 06:25 IV: 500ml; Total: 500ml. ao Outcome: 05:41 Decision to Hospitalize by Provider. madonna 07:39 Admitted to Med/surg accompanied by nurse, family with patient, room 213, on monitor, liyah with chart, Report called to Lurdes RODRIGUEZ 07:39 Condition: stable 07:39 Instructed on the need for admit, Demonstrated understanding of instructions. 08:14 Patient left the ED. liyah Signatures: Dispatcher [employer] EDMS Juan Landrum MD MD cha Sanford, Demi ds1 Lucille Diaz RN RN Fauzia Higginbotham Henry, RN RN hj Ortiz, Alex, RN RN ao Knox, Taylor, RN RN jeanette2 Mary Alice Wilson 1 Francia Faulkner 1 Kendy Cooper sg3 Corrections: (The following items were deleted from the chart) 05:25 05:21 Home Meds: Xarelto 15 mg oral tab daily; balaji carpio 07:57 07:05 BP 130 / 81; Pulse 68bpm; Resp 98bpm; Pulse Ox 96% RA; liyah 08:24 07:30 Ultrasound completed. Patient tolerated well. sg3 sg3
[2018-01-20] MEDS ORDERED: NA CHLORIDE 0.9% 1,000 ML ONE (05:48)
[2018-01-20] MEDS ORDERED: ACETAMINOPHEN 500 MG TAB PO PRN (05:50)
[2018-01-20] MEDS ORDERED: ONDANSETRON 4 MG/2 ML VIAL IV PRN (05:50)
[2018-01-20] MEDS ORDERED: MORPHINE 4 MG/ML SYR IV PRN (05:50)
[2018-01-20 05:58] LABS: Absolute Lymphocytes (CBC) 1.5 K/uL (0.7-4.9); Absolute Monocytes 0.7 K/uL (0.1-1.3); Absolute Neutrophil 4.9 K/uL (1.8-8.0); Eosinophils % 2.1 % (0-4.4); Hematocrit 41.9 % (39.6-49.0); Lymphocytes % 19.9 % (15.3-44.8); MCH 33.1 pg (27.0-35.0); MCV 96.2 fL (80-100); MPV 7.8 fL (7.6-11.3); Monocytes % 9.7 % (3.3-12.3); RBC Red Blood Cell Count 4.35 M/uL (4.33-5.43)
[2018-01-20] MEDS ORDERED: NA CHLORIDE 0.9% 1,000 ML IV SCH (06:00)
--- NOTE | 2018-01-20 06:01 | EKG ---
Test Date: 2018-01-20 Test Time: 05:12:24 Disposal Plant Operator: COLT MEASUREMENT RESULTS: Intervals: Rate: 68 ME: 166 QRSD: 90 QT: 394 QTc: 418 [place]: P: 55 ME: 166 QRS: -10 T: 31 INTERPRETIVE STATEMENTS: Normal sinus rhythm Minimal voltage criteria for LVH, may be normal variant Borderline ECG Compared to ECG 01/15/2018 17:30:22 No significant changes Electronically Signed On 01-20-18 06:01:09 CDT by Esdras Joe
[2018-01-20 06:04] LABS: Protime INR 1.37
[2018-01-20 06:15] LABS: ALT/SGPT 34 U/L (12-78); AST/SGOT 17 U/L (15-37); Albumin 3.6 g/dL (3.4-5.0); Alkaline Phosphatase 71 U/L (45-117); BUN Blood Urea Nitrogen 17 mg/dL (7-18); Bicarbonate 25 mmol/L (21-32); Bilirubin Direct 0.1 mg/dL (0-0.2); Bilirubin Total 0.5 mg/dL (0.2-1.0); CKMB Creatine Kinase MB < 1.0 ng/mL (0.3-3.6); Creatine Phosphokinase 34 U/L (39-308); Glucose Level 107 mg/dL (74-106); Magnesium 2.3 mg/dL (1.8-2.4); NT PRO-BNP 16 pg/mL (<125); Potassium 4.3 mmol/L (3.5-5.1); Protein, Total 7.7 g/dL (6.4-8.2); Sodium Level 137 mmol/L (136-145)
--- NOTE | 2018-01-20 08:09 | P.HP ---
Certification for Inpatient Patient admitted to: Observation With expected LOS: <2 Midnights Patient will require the following post-hospital care: None Practitioner: I am a practitioner with admitting privileges, knowledge of patient current condition, hospital course, and medical plan of care. Services: Services provided to patient in accordance with Admission requirements found in Title 42 Section 412.3 of the Code of Federal Regulations Patient History Date of Service: 01/20/18 Reason for admission: chest pain rule out acute coronary syndrome History of Present Illness: Patient is a 67-year-old gentleman who came into the hospital with chest discomfort. Pain was mainly in the sternal region and kind of woke him up from his sleep. Patient was recently diagnosed with a DVT and a pulmonary embolism. Patient had a right knee replacement about 6 weeks ago. Patient had cardiac clearance and he had a stress test about 2 years ago which did not reveal any abnormality. He developed a swelling and pain behind the right knee about a week ago and an ultrasound showed a DVT. He was sent to the hospital and he also had a CT scan done which showed multiple pulmonary embolism. Patient has had a lot of anxiety since that time. His states that he spends a lot of time on the Internet looking up side effects of the medication and complications of his clinical condition. He has never really been ill prior to this. He also has had persistent pain behind the right knee. There looks to be a Jovel cyst and a hematoma in that region per the ultrasound report. At this time, he will be admitted to the hospital for further evaluation. Allergies No Known Allergies Allergy (Verified 01/15/18 22:40) Home Medications: Rivaroxaban [Xarelto] 10 mg PO DAILY #60 tablet 01/16/18 - Past Medical/Surgical History Diabetic: No -: Tobacco abuse -: DVT/PE -: Right knee replacement -: Back surgery Psychosocial/ Personal History: Patient is . He has 2 children. He is a gas welder apprentice. - Family History Brother Medical History: Heart disease - Social History Alcohol use: No CD- Drugs: No Caffeine use: Yes Review of Systems 10-point ROS is otherwise unremarkable Physical Examination - Vital Signs Temperature: 98 F Blood Pressure: 130/70 Pulse: 80 Respirations: 18 Pulse Ox (%): 96 - Physical Exam General: Alert, In no apparent distress, Oriented x3 HEENT: Atraumatic, Normocephalic Neck: Supple, 2+ carotid pulse no bruit, JVD not distended, No Thyromegaly Respiratory: Clear to auscultation bilaterally, Normal air movement Cardiovascular: Regular rate/rhythm, Normal S1 S2 Gastrointestinal: Normal bowel sounds, Hypoactive, Soft and benign, Non- distended, No rebound, No guarding Musculoskeletal: No clubbing, No swelling Integumentary: No rashes Neurological: Normal gait, Normal speech, Normal strength at 5/5 x4 extr, Normal tone, Cranial nerves 3-12 intact, Normal reflexes 2+ - Studies Laboratory Data (last 24 hrs) 01/20/18 05:35: PT 16.2 H, INR 1.37, APTT 39.9 H 01/20/18 05:35: WBC 7.3, Hgb 14.4, Hct 41.9, Plt Count 321 01/20/18 05:35: Sodium 137, Potassium 4.3, BUN 17, Creatinine 0.80, Glucose 107 H, Magnesium 2.3, Total Bilirubin 0.5, AST 17, ALT 34, Alkaline Phosphatase 71 Assessment & Plan - Problems (Diagnosis) (1) Chest pain, rule out acute myocardial infarction Current Visit: Yes Status: Acute (2) History of pulmonary embolism Current Visit: Yes Status: Acute (3) Anxiety disorder Current Visit: Yes Status: Acute (4) DVT (deep venous thrombosis) Onset Date: 01/16/18 Current Visit: No Status: Acute (5) History of right knee surgery Current Visit: No Status: Chronic - Plan 1. SERIAL TROPONINS AND EKG 2. CARDIOLOGY CONSULTATION 3. ECHOCARDIOGRAM DONE RECENTLY WAS COMPLETELY NORMAL 4. CONTINUED THERAPY FOR DVT TREATMENT. CARDIOLOGY IS RECOMMENDING OBSERVATION AND IF WORKUP IS NEGATIVE THEN OUTPATIENT FOLLOW-UP FOR FURTHER DIAGNOSTIC TESTING. 5. CONTINUE WITH ANTICOAGULATION AND ANXIOLYTICS Discharge Plan: Home Plan to discharge in: 24 Hours - Advance Directives Does patient have a Living Will: No Does patient have a Durable POA for Healthcare: No - Code Status/Comfort Care Code Status Assessed: Yes Code Status: Full Code Critical Care: No Time Spent Managing PTS Care (In Minutes): 50
[2018-01-20] MEDS ORDERED: RIVAROXABAN 15 MG TABLET PO SCH (09:00)
--- NOTE | 2018-01-20 10:20 | RAD REPORT ---
EXAM DESCRIPTION: VASExtremity Venous Uni Ltd01/20/2018 8:30 am CLINICAL HISTORY: Right leg pain and swelling. COMPARISON: January 15, 2018 FINDINGS: Echogenic material consistent with subacute thrombus is present within the right popliteal vein. It is mildly improved from the prior exam Right common femoral, superficial femoral, and right posterior tibial veins are compressible and dem onstrate augmentation. Doppler demonstrates good flow. Right calf hematoma has decreased in size currently measuring 7 x 2 centimeters IMPRESSION: Subacute thrombus within the right popliteal vein
--- NOTE | 2018-01-20 10:22 | P.DS ---
Admission Date: 01/20/18 Discharge Date: 01/21/18 Disposition: ROUTINE DISCHARGE Discharge Condition: FAIR Reason for Admission: Chest discomfort Brief History of Present Illness: Patient is 67 years of age recently diagnosed with DVT and pulmonary embolism admitted with some chest discomfort anxiety attack Hospital Course: Patient was here for observation at the time of my a around she was doing well denied any chest pain shortness of breath he did however complain of swelling in his right leg was seen by orthopedics this right leg was discolored and swollen most likely from his recent DVT On examination patient doing well alert oriented responsive cooperative vital signs all stable clear cardiovascular system os was normal right leg was swollen and discolored he is to continue taking his [place] I have also given some Xanax for anxiety attacks he is really worried about is thromboembolism recently had a knee surgery 6 weeks ago Extensive workup was ordered in the ER including a head CT CT angiogram chest x- rays CTA scan shows resolution of subsegmental thrombus lower extremity Doppler shows subacute DVT in the right leg CT scan of the head was negative Vital Signs/Physical Exam: Temp Pulse Resp BP Pulse Ox 98 F 80 18 130/70 96 01/20/18 08:10 01/20/18 08:10 01/20/18 08:10 01/20/18 08:10 01/20/18 08:10 Laboratory Data at Discharge: WBC 7.3 K/uL (4.3-10.9) 01/20/18 05:35 Hgb 14.4 g/dL (13.6-17.9) 01/20/18 05:35 Hct 41.9 % (39.6-49.0) 01/20/18 05:35 Plt Count 321 K/uL (152-406) 01/20/18 05:35 PT 16.2 SECONDS (9.5-12.5) H 01/20/18 05:35 INR 1.37 01/20/18 05:35 APTT 39.9 SECONDS (24.3-36.9) H 01/20/18 05:35 Sodium 137 mmol/L (136-145) 01/20/18 05:35 Potassium 4.3 mmol/L (3.5-5.1) 01/20/18 05:35 BUN 17 mg/dL (7-18) 01/20/18 05:35 Creatinine 0.80 mg/dL (0.55-1.3) 01/20/18 05:35 Glucose 107 mg/dL (74-106) H 01/20/18 05:35 Magnesium 2.3 mg/dL (1.8-2.4) 01/20/18 05:35 Total Bilirubin 0.5 mg/dL (0.2-1.0) 01/20/18 05:35 AST 17 U/L (15-37) 01/20/18 05:35 ALT 34 U/L (12-78) 01/20/18 05:35 Alkaline Phosphatase 71 U/L (45-117) 01/20/18 05:35 Home Medications: Alprazolam [Xanax] 0.25 mg PO DAILY PRN #10 tablet 01/20/18 Rivaroxaban [Xarelto*] 15 mg PO DAILY 01/20/18 New Medications: Alprazolam [Xanax] 0.25 mg PO DAILY PRN #10 tablet PRN Reason: Anxiety Patient Discharge Instructions: Patient will need to wear some compression stockings on the right leg Diet: Regular Activity: Ad soumya Followup: Stone Simons MD [ACTIVE - CAN ADMIT] - (if needed for blood clots )
--- NOTE | 2018-01-20 11:22 | RAD REPORT ---
EXAM DESCRIPTION: CT - Chest For Pe Angio - 01/20/2018 10:36 am CLINICAL HISTORY: Chest pain COMPARISON: January 15, 2018 TECHNIQUE: Dynamically enhanced axial 3 mm thick images of the chest were obtained during administra tion of <100> mL Isovue 370 IV contrast. Coronal and oblique reconstruction images were generated and reviewed. Exam utilizes a protocol for optimal evaluation of pulmonary arterial tree.A preliminary report was generated by [facility] radi[facility] and reviewed prior to this dictation Maximum intensity projections 3D imaging was utilized All CT scans are performed using dose optimization technique as appropriate and may include automated exposure control or mA/KV adjustment according to patient size. FINDINGS: The previously described subsegmental pulmonary emboli have mostly resolved. Central and s egmental pulmonary emboli are not noted. . A thoracic aortic aneurysm is not noted. A pleural effusion is not seen. A pericardial effusion is not seen. A lung consolidation is not present. IMPRESSION: The subsegmental pulmonary emboli have mostly resolved
--- NOTE | 2018-01-20 11:22 | RAD REPORT ---
EXAM DESCRIPTION: CT - Head Brain Wo Cont - 01/20/2018 10:37 am CLINICAL HISTORY: Dizziness COMPARISON: None. TECHNIQUE: Computed axial tomography of the head was obtained. IV contrast was not requested.A a pre liminary report was generated by [facility] and reviewed prior to this dictation All CT scans are performed using dose optimization technique as appropriate and may include automated exposure control or mA/KV adjustment according to patient size. FINDINGS: An intracranial bleed is not seen . The ventricles are normal in caliber. No extra-axial fluid collection is noted. Increased density is present within the left frontal sinus and portion of left anterior ethmoid sinus IMPRESSION: No acute intracranial abnormality is seen. If patient's symptoms persist MRI of the bra in would be recommended. Increased density within the left frontal and ethmoid sinus may indicate inspissated mucus
--- NOTE | 2018-01-20 11:36 | RAD REPORT ---
EXAM DESCRIPTION: Ankit Single View01/20/2018 5:42 am CLINICAL HISTORY: Chest pain COMPARISON: January 15, 2018 FINDINGS: The lungs appear clear of acute infiltrate. The heart is normal size IMPRESSION: No acute abnormalities displayed
--- NOTE | 2018-01-20 13:30 | CON ---
Date of Consultation: 01/20/[address] Rojo's service on 01/20/2018, patient is seen on 01/20/2018. Reason For Consultation: Chest pain. History Of Present Illness: Mr. Greene is a 67-year-old white male, recently had surgery on his kne e in November of 2017. He was undergoing physical therapy and then developed a DVT and had a pulmonary e mbolus recently. He had been placed on Xarelto. He has been taking this for 3 days, coming back to the emergency room with more chest pain, described as diffuse tightness and some sharp stabbing chest pain in the left upper chest. No nausea, vomiting, or diaphoresis. Denied any PND, orthopnea, peda l edema, palpitations, or syncope. Chest x-ray is negative. EKG is negative. CPKs, troponin and MB s are negative so far. The patient is very anxious over his recent DVT and pulmonary embolus and is wondering what is happening to the clots on Xarelto. He is on 15 b.i.d., and he will be taking that for at least 3-6 months. He complains of right knee swelling still. Orthopedic evaluation is pendmoo g. He denied any fever or chills or cough or trauma. Past Medical History: Negative. Allergies: NONE. Review of Systems: Negative. Social History: Negative. He used to smoke, but now he uses vapor cigarettes. No alcohol. Medications: At home include Xarelto. Physical Examination: General: He appeared to be very anxious. Vital Signs: Stable. He was afebrile. HEENT: Negative. Neck: Supple with no bruit. Chest: Clear. Cardiac: Reveals a regular rhythm and rate. No murmurs, gallops, or rubs. Abdomen: Benign. Extremities: Revealed no clubbing, cyanosis, or edema. Diagnostic Data: As stated earlier. Impression And Plan: 1.Recent pulmonary embolus bilaterally status post right deep vein thrombosis on Xarelto. 2.Chest pain that is atypical, diffuse pressure-like, stabbing-like persistent now for few hours wit h still normal EKG and troponin. He had a negative echo and stress test by Dr. Collins about 2 years ago for similar symptoms that told him at that time that was anxiety. Certainly, the pulmonary embo clare is unlikely to be causing his symptoms right now. He needs orthopedic surgery to see his right k nee to make sure he does not have any hematoma or Jovel cyst rupture or other issues. I will continu e the [place] for sure. I agree with admitting him and ruling him out, but if he rules out he can ce rtainly go home and have an outpatient stress test and an echo. I will follow him along with Dr. Smith STANG/JAZZMINE Voice ID: [id number] Report ID: [id number]
--- NOTE | 2018-01-20 14:28 | CON ---
Date of Consultation: 01/20/2018 Reason For Consultation: History of right total knee replacement with DVT. History Of Present Illness: Sina is a 67-year-old male who reports a history of right total knee r eplacement in November of this year by Dr. Rodríguez at [facility]. The patient reports uneventful surgery as well as postoperative course. He had been working with physical therapy and noticed incre ased swelling of his right lower extremity earlier in the week. He was seen in the ER and diagnosed with DVT as well as PE. He was started on Xarelto and later discharged. He reports some chest pain overnight and was brought in through the ER and admitted to the floor for further evaluation. He den ies any pain in his right knee at this time. Denies any fever or chills. Review of Systems: As above, otherwise negative. Physical Examination: General: In no apparent distress. HEENT: Normocephalic, atraumatic. Neck: Supple. Cardiovascular: Brisk cap refill to all digits. Chest: Nonlabored breathing. Abdomen: Nondistended. Psychiatric: Response to exam. Musculoskeletal: Right lower extremity, healed incision. No swelling about the effusion noted withi n the knee. No erythema, fluctuance, or induration. No significant ecchymosis over the calf. Mild posterior medial pain or tenderness over the posterior medial calf. Neurovascular: Intact distally. Assessment And Plan: Sina is a 67-year-old male status post right total knee arthroplasty with a r ight lower extremity deep venous thrombosis. There is no significant hematoma noted on physical exam today. He may continue with Xarelto as prescribed and was instructed to follow up with his primary surgeon, Dr. Rodríguez in the next week. He may be weightbearing as vania rated. CV/MODL Voice ID: [id number] Report ID: [id number]
== END 2018-01-20 13:38 | disposition home or self-care (01) ==
LOC: ER 05:00 → ERHOLD 06:37 → 2ND 06:52
PROVIDERS: ADMIT Hospitalist; ATTEND Hospitalist
DX: R07.89 Other chest pain (principal); F41.9 Anxiety disorder, unspecified; I82.431 Acute embolism and thrombosis of right popliteal vein; Z79.01 Long term (current) use of anticoagulants; Z96.651 Presence of right artificial knee joint; Z86.711 Personal history of pulmonary embolism
CPT/HCPCS: 36415; 70450; 71045; 71275; 80048; 80076; 82550; 82553; 83735; 83880; 84484; 85025; 85610; 85730; 93005; 93971; 96360; 99285; G0378; J7030; Q9967

== ENCOUNTER 2025-03-14 09:42 | Day surgery (SDC) | payer OTHER ==
[2025-03-11 15:05] LABS: Absolute Lymphocytes (CBC) 1.4 K/uL (0.7-4.9); Hematocrit 48.7 % (39.6-49.0); Hemoglobin 16.1 g/dL (13.6-17.9); MCH 32.7 pg (27.0-35.0); MCHC 33.1 g/dL (32.0-36.0); MCV 98.9 fL (80-100); MPV 8.0 fL (7.6-11.3); Nucleated RBC Absolute Count 0.0 (0-0); Nucleated Red Blood Cells % 0.1 % (0-0); RBC Red Blood Cell Count 4.93 M/uL (4.33-5.43); White Blood Count 4.80 thou/uL (4.3-10.9)
[2025-03-11 15:19] LABS: Anion Gap 6.5 mEq/L (5.0-15.0); BUN Blood Urea Nitrogen 23.0 mg/dL (7-18); Glucose Level 88.0 mg/dL (74-106); Potassium 4.5 mEq/L (3.5-5.1)
[2025-03-14] MEDS: Ringers Lactate 1,000 ML IV ONE (10:05)
[2025-03-14] MEDS: OXYMETAZOLINE HCL 0.05% 30ML NAS ONE (10:10)
[2025-03-14] MEDS ORDERED: NA CIT/CITRIC AC 30 ML ORAL UDC ONE (10:13)
[2025-03-14] MEDS ORDERED: OXYMETAZOLINE HCL 0.05% 30ML NAS ONE (10:44)
[2025-03-14] MEDS ORDERED: BACITRACIN OINTMENT 14 GM TUBE TOP ONE (10:44)
[2025-03-14] MEDS ORDERED: FENTANYL CITR 100 MCG/2 ML ONE (10:46)
[2025-03-14] MEDS ORDERED: ONDANSETRON 4 MG/2 ML VIAL ONE (10:46)
[2025-03-14] MEDS ORDERED: LIDOCAINE 2% MPF 5 ML VIAL ONE (10:46)
[2025-03-14] MEDS ORDERED: KETOROLAC 30 MG/ML INJ ONE (10:46)
[2025-03-14] MEDS ORDERED: ROCURONIUM 50 MG/5 ML VIAL IV ONE (10:46)
[2025-03-14] MEDS: LIDOCAINE HCL/EPINEPHRINE 20 ML MDV ONE (11:30)
[2025-03-14] MEDS ORDERED: METOCLOPRAMIDE 10 MG/2mL INJ ONE (11:32)
[2025-03-14] MEDS ORDERED: Ringers Lactate 1,000 ML IV ONE (12:02)
[2025-03-14] MEDS ORDERED: SUGAMMADEX SODIUM 200 MG/2 ML VIAL IV ONE (12:44)
[2025-03-14] MEDS ORDERED: SUCCINYLCHOLINE 20 MG/ML (10 ML) IV ONE (12:48)
--- NOTE | 2025-03-14 13:18 | P.OP ---
Date of Service: 03/14/25 Preoperative Diagnosis: [chronic frontal sinusitis], neoplasm uncertain behavior right nasopharynx Postoperative diagnosis: Same Procedure: Nasal endoscopy with frontal sinusotomy, left and nasal endoscopy with biopsy of right nasopharynx Surgeon: Maritza Monae MD Global Account Manager: None Indication for procedure: Patient presented to the clinic with complaints of headache. A nasal endoscopy was performed in the clinic which demonstrated a round lesion in the right fossa of Rosenmuller. A CT scan of the neck with contrast was performed which demonstrated the lesion and additionally the patient had complete obstruction with opacification of the left frontal sinus.. The risks, benefits, and alternatives to surgical procedure were discussed with the patient and/or family and they agreed to proceed. Surgical findings: Cystic mass of the right nasopharynx. IV Fluids: Crystalloid, see anesthesia record Implants/Packing: Posisep BAM to L sinus cavity Estimated Blood Loss: 20 mL Complications: [none] Description of procedure in detail: The patient was brought to the operating room. They were placed under general anesthesia via oral endotracheal tube. The head of bed was turned 90 degrees. The nasal hairs were trimmed. The nasal cavity was examined with the nasal speculum and headlight with the following fi ndings: The patient had prior nasal turbinate reduction which was well healed. The middle meatus was unremarkable by anterior rhinoscopy. The nasal cavity was packed with Afrin-soaked pledgets in preparation for the procedure. The patient was draped in a standard fashion for nasal surgery. A 0 degree endoscope was then used to perform a nasal endoscopy with notable findings of well-healed near complete inferior turbinate reduction. Bilateral well-healed maxillary antrostomy with ethmoidectomy. Sphenoethmoid recess with patent sphenoidotomy and no active pus or polyps. The left middle turbinate was lateralized and scarred to the lateral nasal wall. The nasopharynx demonstrated cyst appearing mass of the right fossa of [place]er. The left side was unremarkable. Photo documentation was obtained. Using a 0 degree endoscope and straight Blakesley forcep, a biopsy was performed of the right nasopharyngeal mass. A small piece of tissue was removed. A small amount of mucus was noted at the site of the biopsy. A 45 degree Blakesley forcep was used to take a more generous amount of tissue which was sent along with the specimen to permanent section with low suspicion for ena gnancy. Straight suction was used to evacuate mucus from the cyst cavity and Afrin-soaked pledget was applied to the biopsy site to ensure hemostasis. Using a 0 degree endoscope and 90 degree Blakesley, the middle turbinate scarring was carefully removed. A Afrin-soaked pledget was placed for hemostasis. A 70 degree endoscope was used for evaluation and examination of the skull base. There was scarring noted posteriorly. It was difficult to directly visualize the frontal recess. A [employer] balloon dilation device was used to palpate the anterior skull base and cannulate the frontal recess. The lighted guidewire was noted to robustly illuminate the left frontal sinus when viewed externally confirming appropriate cannulation of the frontal recess. The balloon was then dilated held for about 30 seconds and deflated. The cannula was left in place but the balloon was retracted and the sinus was forcefully irrigated with 40 mL of sterile saline. The area was packed with Afrin soaked pledgets for several minutes. After removal the area was reexamined and additional soft tissue and bone fragments were removed from the frontal recess using Blakesley and 90 degree Blakesley forceps. Once the area had been adequately cleaned, a resorbable PosiSep BAM hemostatic dressing was placed within the left middle meatus and soaked with sterile saline. The right and left nasal and sinus cavities and nasopharynx were further inspected and there was no evidence of bleeding. All pledgets and sponge counts were confirmed correct by the nursing staff and the procedure was concluded. T he patient was returned to care of anesthesia for awakening extubation in the operating room which proceeded without complication. The patient is given written and verbal instructions regarding the importance of saline irrigations and nasal precautions.
[2025-03-14 13:42] VITALS: BP 144/75; TEMP 98.6; O2SAT 98
[2025-03-14] MEDS: ACETAMINOPHEN 325 MG TABLET ONE (14:10)
== END 2025-03-14 14:27 | disposition home or self-care (01) ==
LOC: OR 09:42
PROVIDERS: ATTEND Otolaryngology
PROC: 09BT8ZX Excision of Left Frontal Sinus, Via Natural or Artificial Opening Endoscopic, Diagnostic (ICD-10-PCS; 2025-03-14)
PROC: 09TT8ZZ Resection of Left Frontal Sinus, Via Natural or Artificial Opening Endoscopic (ICD-10-PCS; principal; 2025-03-14 11:15)
DX: J32.1 Chronic frontal sinusitis (principal); D37.05 Neoplasm of uncertain behavior of pharynx
CPT/HCPCS: 93005; 85025; 80048; 36415; 88305; 88311; 31276; J1885; J2704; J2765; J2003; J3010; J1100; J2405; J7120 ×2; J0330